=== PATIENT | female | born 1940 | race Caucasian/White ===

== ENCOUNTER 2016-07-03 17:27 | Emergency (ER) | payer MEDICARE, MEDICAID ==
[2016-07-03] MEDS ORDERED: Sodium Chloride 0.9% 10 ML Syringe FLUSH PRN (17:38)
[2016-07-03 17:42] VITALS: BP 127/89
--- NOTE | 2016-07-03 18:29 | CT ---
Head CT Technique: Multiple axial sections through the brain were obtained. Intravenous contrast was not utilized. Comparison: Previous head CT study of 08/06/11. Findings: Ventricles along with basal cisterns and sulci over convexities are moderately prominent. Atrophy has increased from prior exam. Diminished density is noted within portions of the periventricular and subcortical white matter compatible with small vessel ischemic demyelination change. 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 No evidence of intracranial hemorrhage. No midline shift or mass effect is seen. Bone window settings were reviewed which shows the visualized sinuses to appear clear. No discrete calvarial abnormality is appreciated. Impression: 1. Atrophy which has increased in prominence from prior study. Other senescent change also slightly more prominent. 2. No acute intracranial abnormality is appreciated. Diagnostic code #2
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
--- NOTE | 2016-07-04 11:56 | CR ---
Chest: Portable view of the chest was obtained. Comparison: Previous chest x-ray of 02/15/14. Heart size appears within normal limits for portable technique. Tortuous thoracic aorta is seen. Lungs are clear with no acute infiltrates. Bony structures are osteopenic. Mild scoliosis is present within the spine with scattered endplate osteophytes within the spine. Impression: 1. Incidental findings. Nothing acute is appreciated on portable chest x-ray. Diagnostic code #2
== END 2016-07-03 20:15 ==
LOC: SUPCPDRO 17:27 → JD.ED 17:27
DX: F91.1 Conduct disorder, childhood-onset type (principal); R60.0 Localized edema; I10 Essential (primary) hypertension; K21.9 Gastro-esophageal reflux disease without esophagitis; F03.90 Unspecified dementia, unspecified severity, without behavioral disturbance, psychotic disturbance, mood disturbance, and anxiety; Z79.899 Other long term (current) drug therapy; Z88.8 Allergy status to other drugs, medicaments and biological substances
CPT/HCPCS: 36415; 70450; 71010; 80053; 81001; 83880; 84484; 85025; 87086; 87088; 87186; 93005; 99285; J7050

== ENCOUNTER 2016-07-04 15:15 | Emergency (ER) | payer MEDICARE, MEDICAID ==
[2016-07-04] MEDS ORDERED: Sodium Chloride 0.9% 10 ML Syringe FLUSH PRN (15:40)
[2016-07-04] MEDS ORDERED: ceFAZolin 1 GM in Premix Bag 1 BAG IV ONE (15:50)
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
[2016-07-04] MEDS ORDERED: LORazepam 2 MG/ML MDV IVPUSH ONE (16:18)
[2016-07-04] MEDS ORDERED: Haloperidol Lactate 5 MG/ML SDV IVPUSH ONE (17:47)
[2016-07-04 19:26] VITALS: BP 120/76
== END 2016-07-04 19:00 ==
LOC: JD.ED 15:15
DX: G30.9 Alzheimer's disease, unspecified (principal); F02.81 Dementia in other diseases classified elsewhere, unspecified severity, with behavioral disturbance; N30.00 Acute cystitis without hematuria; I10 Essential (primary) hypertension; K21.9 Gastro-esophageal reflux disease without esophagitis; Z88.8 Allergy status to other drugs, medicaments and biological substances
CPT/HCPCS: 96365; 96375; 99285; J0690; J1630; J2060; J7050; 99284

== ENCOUNTER 2016-07-19 17:50 | Emergency (ER) | payer MEDICARE, MEDICAID ==
[2016-07-19 17:57] VITALS: BP 125/64
--- NOTE | 2016-07-19 19:49 | EDM.PDOC ---
ED HPI GENERAL MEDICAL PROBLEM - General Chief Complaint: Behavioral/Psych Stated Complaint: Agitation Time Seen by Provider: 07/19/16 18:45 Source of Information: Reports: Patient, RN Notes Reviewed History Limitations: Reports: No Limitations - History of Present Illness INITIAL COMMENTS - FREE TEXT/NARRATIVE: 76 year old female is sent to the emergency department today for evaluation of agitated and aggressive behavior at the [facility]. Her aggressive behavior has been escalating to the point that the [facility] is concerned about the safety of the patient, staff, and other residents. Its reported that law enforcement was even called to respond to the [facility] due to the severity of her aggression. This aggressive behavior has been escalating for approximately 2 months. The behaviors are described as intermittent. Broderick from [facility] called and spoke to our CNO Jessica Clayton regarding this patient. Due to safety concerns they are refusing to let the patient come back to [facility]. No reported falls or injuries at the [facility]. The patient was in the ED on 07/04/16 for the same concerns and was subsequently sent to the psych unit at [facility] in [place]. She was just released from [facility] two days ago. Dr. Verdugo, psychiatrist from [place] who is involved in this patient's case through the [facility], called from [facility] and spoke to ED Physician Dr. Calix regarding this patient. Dr. Verdugo told Dr. Landeros that Kaela is no longer safe to be at [facility] due to the severity of her behaviors. A close friend of the family is present at the bedside as the patient's two daughters live out of state. The friend states that the patient's behaviors are much worse since she came back from [facility]. She reports that the patient was in the Alzheimers unit at one time but was moved out of the alzheimers unit due to "conflict with another resident." According to the friend, the patient's MPOA is her daughter Sharyn Fuchs who lives in [place]. The patient is otherwise in good health. She is independent with her cares and ambulates without assistance. According to the friend, the patient was diagnosed with a UTI prior to transfer to [place] and was treated with antibiotics. - Related Data Allergies Allergy/AdvReac Type Severity Reaction Status Date / Time memantine Allergy Cannot Verified 07/19/16 17:57 Remember Home Meds: Home Meds Acetaminophen [Tylenol] 650 mg PO TID 07/04/16 [History] Docusate Sodium/Sennosides [Senna Plus] 2 tab PO DAILY PRN 07/04/16 [History] Bisacodyl [Dulcolax] 10 mg RECTAL DAILY PRN 07/19/16 [History] Divalproex Sodium [Depakote Sprinkle] 250 mg PO BEDTIME 07/19/16 [History] Divalproex Sodium [Depakote Sprinkle] 250 mg PO DAILY 07/19/16 [History] Docusate Sodium/Sennosides [Senna Plus] 2 tab PO DAILY 07/19/16 [History] Polyvinyl Alcohol/Povidone/Pf [Refresh Classic Eye Drops] 1 drop EYEBOTH DAILY PRN 07/19/16 [History] QUEtiapine [SEROquel] 12.5 mg PO TID 07/19/16 [History] QUEtiapine [SEROquel] 25 mg PO TID 07/19/16 [History] Past Medical History Cardiovascular History: Reports: Angina, Hypertension Gastrointestinal History: Reports: GERD Musculoskeletal History: Reports: Back Pain, Chronic Psychiatric History: Reports: Dementia, Other (See Below) Other Psychiatric History: cognnitive impairment Social & Family History - Tobacco Use Smoking Status *Q: Unknown Ever Smoked Years of Tobacco use: 0 Second Hand Smoke Exposure: No - Caffeine Use Caffeine Use: Reports: Coffee - Alcohol Use Days Per Week of Alcohol Use: 0 - Recreational Drug Use Recreational Drug Use: No - Living Situation & Occupation Living situation: Reports: Single, Alone ED ROS GENERAL - Review of Systems Review Of Systems: Unable To Obtain ED EXAM, BEHAVIORAL HEALTH - Physical Exam Exam: See Below Exam Limited By: Altered Mental Status General Appearance: Alert, WD/WN, No Apparent Distress, Other (calm, cooperative ) Eye Exam: Bilateral Eye: EOMI, PERRL Respiratory/Chest: No Respiratory Distress, Lungs Clear, Normal Breath Sounds Cardiovascular: Regular Rate, Rhythm GI/Abdominal: Normal Bowel Sounds, Soft, Non-Tender Neurological: Alert, Disoriented to Person, Disoriented to Place, Disoriented to Time, Inattentive, Other (the patient has speech that is at times appropriate and at other times she mumbles garbled speech. Friend at the bedside says this is very common and normal for her) Psychiatric: Alert, Flat Affect, Other (cooeperative). No: Threatening Behavior Skin Exam: Warm, Dry, Intact COURSE, BEHAVIORAL HEALTH COMP - Course Vital Signs: Last Vital Signs Temp 98.7 F 07/19/16 17:55 Pulse 88 07/19/16 22:52 Resp 18 07/19/16 22:52 BP 125/64 07/19/16 17:55 Pulse Ox 95 07/19/16 22:52 Orders, Labs, Meds: Laboratory Tests 07/19/16 07/19/16 07/19/16 Range/Units 19:20 19:20 20:57 WBC 6.71 (3.98-10.04) K/mm3 RBC 3.97 L (3.98-5.22) M/mm3 Hgb 11.8 (11.2-15.7) gm/L Hct 35.9 (34.1-44.9) % MCV 90.4 (79.4-94.8) fl MCH 29.7 (25.6-32.2) pg MCHC 32.9 (32.2-35.5) g/dl RDW Std Deviation 40.3 (36.4-46.3) fL Plt Count 188 (182-369) K/mm3 MPV 12.0 (9.4-12.3) fl Neut % (Auto) 56.0 (34.0-71.1) % Lymph % (Auto) 27.7 (19.3-51.7) % Harrison % (Auto) 13.6 H (4.7-12.5) % Eos % (Auto) 2.4 (0.7-5.8) Baso % (Auto) 0.3 (0.1-1.2) % Neut # (Auto) 3.76 (1.56-6.13) K/mm3 Lymph # (Auto) 1.86 (1.18-3.74) K/mm3 Harrison # (Auto) 0.91 H (0.24-0.36) K/mm3 Eos # (Auto) 0.16 (0.04-0.36) K/mm3 Baso # (Auto) 0.02 (0.01-0.08) K/mm3 Sodium 144 (136-145) mEq/L Potassium 4.5 (3.5-5.1) mEq/L Chloride 109 H (98-107) mEq/L Carbon Dioxide 29 (21-32) mEq/L Anion Gap 10.5 (5-15) BUN 13 (7-18) mg/dL Creatinine 0.8 (0.55-1.02) mg/dL Est Cr Clr Drug Dosing 52.15 mL/min Estimated GFR (MDRD) > 60 (>60) mL/min BUN/Creatinine Ratio 16.3 (14-18) Glucose 120 H (83-115) mg/dL Calcium 8.7 (8.5-10.1) mg/dL Total Bilirubin 0.7 (0.2-1.0) mg/dL AST 20 (15-37) U/L ALT 27 (14-59) U/L Alkaline Phosphatase 92 (46-116) U/L Total Protein 6.7 (6.4-8.2) g/dl Albumin 3.4 (3.4-5.0) g/dl Globulin 3.3 gm/dL Albumin/Globulin Ratio 1.0 (1-2) TSH 3rd Generation 1.110 (0.358-3.74) uIU/mL Urine Color Yellow (Yellow) Urine Appearance Clear (Clear) Urine pH 7.0 (5.0-8.0) Ur Specific [place] 1.015 (1.005-1.030) Urine Protein Trace H (Negative) Urine Glucose (UA) Negative (Negative) Urine Ketones Negative (Negative) Urine Occult Blood Negative (Negative) Urine Nitrite Negative (Negative) Urine Bilirubin Negative (Negative) Urine Urobilinogen 2.0 H (0.2-1.0) Ur Leukocyte Esterase Negative (Negative) Urine RBC Not seen (0-5) /hpf Urine WBC 0-5 (0-5) /hpf Ur Epithelial Cells Not Reportable Ur Squamous Epith Cells 0-5 (0-5) /hpf Urine Bacteria Not seen (FEW) /hpf Urine Mucus Moderate H (FEW) /hpf Medications Discontinued Medications Generic Name Dose Route Start Last Admin Trade Name Freq PRN Reason Stop Dose Admin Lorazepam 0.5 mg 07/19/16 20:11 07/19/16 20:20 Ativan IM 07/19/16 20:12 0.5 mg ONETIME ONE Administration Lorazepam 0.5 mg 07/19/16 20:54 07/19/16 21:00 Ativan IM 07/19/16 20:55 0.5 mg ONETIME ONE Administration Re-Assessment/Re-Exam: On 07/03/16 the patient had a head CT, chest x-ray, and EKG all of which were negative for acute findings to explain her altered mental status. There is no indication today for a repeat head CT as this has been an ongoing problem for over 2 months. 2130 CBC and CMP are normal. Cath UA is negative for infection. TSH is normal. Patient required IM Ativan in order to obtain cath UA. She has been calm and cooperative except during the cath which is to be expected in an dementia patient. Staff has been able to redirect her without any problems. I spoke to Dr. Davila at [facility] regarding this patient. He is very familiar with her. He said she had no behaviors during her stay this past weekend. He said she was very calm and slept quite a bit. He recommends increasing her Seroquel to 50mg PO TID. He does not feel she needs to be admitted to the psych unit again and recommends that she be discharged back to the [facility]. He was made aware that the [facility] is refusing to take her back. I spoke to ED Physician Dr. Tate and also Hospitalist Dr. Rose. Dr. Rose initially accepted the patient for obs admission since the patient does meet obs criteria based on her altered mental status. I then received a phone call from Liam, the director of case management and quality improvement. Liam said that we cannot admit this patient since we do not have psychiatric services. He recommends that we hold this patient in the ED until we find placement. Throughout the patient's stay, I have been in touch with Amber from [facility] [employer] several times. Liam has also spoken to Amber himself. There is a possibility of admission to the [facility] tomorrow morning. Amber spoke to Dr. Beltran at the [facility]. Amber says that admission sounds promising but that it would need to be coordinated in the morning. I agree that sending an elderly patient on a [address] to [place] at night is not appropriate. 0 I spoke to our CNO again regarding this patient. The patient has had no behaviors here and will be discharge back to the [facility]. I had a long talk with the [facility] [employer] administrator Broderick who was updated on Dr. Davila's recommendations. I recommended that they start her increased Seroquel dose in the morning since she had Ativan in the ED tonight. I again spoke to Amber from [facility]. She said they would be able to screen the patient for the [facility] tomorrow at the [facility]. This shouldn't be a problem and she will update the staff in the morning. Departure - Departure Time of Disposition: 22:12 Disposition: DC/Tfer to [facility] 61 Condition: good Clinical Impression: Alzheimer's dementia Qualifiers: Alzheimer's disease onset: unspecified onset Dementia behavioral disturbance: with behavioral disturbance Qualified Code(s): G30.8 - Other Alzheimer's disease - Discharge Information Instructions: Alzheimer Disease Referrals: Haris Alex MD [Primary Care Provider] - Forms: ED Department Discharge Additional Instructions: We spoke to Psychiatrist Dr. Davila who recommends increasing the patient's Seroquel to 50mg 3 times a day Call [facility] tomorrow and have her seen by Dr. Alex in the clinic tomorrow. Return to ER as needed
[2016-07-19] MEDS ORDERED: LORazepam 2 MG/ML MDV IM ONE ×2 (20:11→20:54)
== END 2016-07-19 22:45 ==
LOC: JD.ED 17:50
DX: G30.8 Other Alzheimer's disease (principal); K21.9 Gastro-esophageal reflux disease without esophagitis; G89.29 Other chronic pain; M54.9 Dorsalgia, unspecified; Z79.899 Other long term (current) drug therapy; Z88.8 Allergy status to other drugs, medicaments and biological substances
CPT/HCPCS: 36415; 80053; 81001; 84443; 85025; 96372; 99285; J2060; P9612; 99284

== ENCOUNTER 2017-03-23 19:44 | Inpatient (IN) | payer MEDICARE, MEDICAID ==
[2017-03-23] MEDS ORDERED: Sodium Chloride 0.9% 1,000 ML IV ONE (20:01)
[2017-03-23] MEDS ORDERED: Sodium Chloride 0.9% 10 ML Syringe FLUSH PRN (20:01)
--- NOTE | 2017-03-23 20:09 | EDM.PDOC ---
ED HPI GENERAL MEDICAL PROBLEM - General Chief Complaint: General Stated Complaint: KILLDEER AMB Time Seen by Provider: 03/23/17 20:03 Source of Information: Reports: [facility] Records History Limitations: Reports: Physical Impairment (dementia) - History of Present Illness INITIAL COMMENTS - FREE TEXT/NARRATIVE: 76 year old female presents via [facility] for evaluation and treatment of lethargy and a decreased appetite. Patient is demented and is unable to provide any history. Reportedly per the [facility] she's been tachycardic in the 110s to 130s today. Have also appreciated decreased appetite and lethargy. They do not report any fevers, vomiting, cough or diarrhea. Patient is a DNR, DNI. Patient is a resident of [facility]. - Related Data Allergies Allergy/AdvReac Type Severity Reaction Status Date / Time memantine Allergy Cannot Verified 07/19/16 17:57 Remember Home Meds: Home Meds Acetaminophen [Tylenol] 650 mg PO Q6H PRN 07/04/16 [History] Docusate Sodium/Sennosides [Senna Plus] 2 tab PO BID PRN 07/04/16 [History] Divalproex Sodium [Depakote Sprinkle] 500 mg PO BID 07/19/16 [History] QUEtiapine [SEROquel] 50 mg PO BID 07/19/16 [History] Aspirin [Halfprin] 81 mg PO DAILY 03/23/17 [History] Magnesium 250 mg PO BID 03/23/17 [History] Melatonin 6 mg PO BEDTIME 03/23/17 [History] Mirtazapine 7.5 mg PO BEDTIME 03/23/17 [History] traMADol [Ultram] 50 mg PO BID 03/23/17 [History] Past Medical History Cardiovascular History: Reports: Angina, Hypertension Gastrointestinal History: Reports: GERD Musculoskeletal History: Reports: Back Pain, Chronic Psychiatric History: Reports: Dementia, Other (See Below) Other Psychiatric History: cognnitive impairment Social & Family History - Tobacco Use Smoking Status *Q: Unknown Ever Smoked Years of Tobacco use: 0 Second Hand Smoke Exposure: No - Caffeine Use Caffeine Use: Reports: Coffee - Alcohol Use Days Per Week of Alcohol Use: 0 - Recreational Drug Use Recreational Drug Use: No - Living Situation & Occupation Living situation: Reports: Single, Alone ED ROS GENERAL - Review of Systems Review Of Systems: Unable To Obtain Constitutional: Reports: Fatigue, Decreased Appetite Cardiovascular: Reports: Other (tachycardia) ED EXAM, GENERAL - Physical Exam Exam: See Below Exam Limited By: Physical Impairment (dementia) General Appearance: Alert, No Apparent Distress Eye Exam: Bilateral Eye: PERRL Ears: Normal External Exam Nose: Normal Inspection Throat/Mouth: Other (dry mucus membranesand tongue) Respiratory/Chest: No Respiratory Distress, Lungs Clear, Normal Breath Sounds Cardiovascular: Tachycardia, Systolic Murmur (grade 2 ) GI/Abdominal: Normal Bowel Sounds, Soft, Non-Tender Rectal (Female) Exam: Normal Exam, Heme + Stool Extremities: Normal Inspection Neurological: Alert Skin Exam: Dry, Increased Warmth EKG INTERPRETATION EKG Date: 03/23/17 Time: 20:15 Rhythm: Other (sinus tachycardia) Rate (Beats/Min): 135 Aurora: LAD-Left Aurora Deviation P-Wave: Present QRS: Normal ST-T: Normal QT: Normal EKG Interpretation Comments: Narrow complex tachycardia at 135 bpm. P waves are poorly discerned - consider ectopic atrial rhythm . Q waves in V3. Near Q waves in V6. Abnormal R wave progression. Near Q waves II, III and AVF. LAD (-72 degrees) LVH pattern. Reviewed by myself and Dr. Blackburn. Course - Vital Signs Last Recorded V/S: Last Vital Signs Temp 37.9 C 03/23/17 20:02 Pulse 117 H 03/23/17 20:02 Resp 18 03/23/17 20:02 BP 124/78 03/23/17 20:02 Pulse Ox 97 03/23/17 20:02 - Orders/Labs/Meds Orders: Active Orders 24 hr Category Date Time Status Cardiac Monitoring [RC] . DIRECTED Care 03/23/17 20:01 Active EKG Documentation Completion [RC] ASDIRECTED Care 03/23/17 20:01 Active Peripheral IV Care [RC] . DIRECTED Care 03/23/17 20:01 Active Chest 1V Frontal [CR] Stat Exams 03/23/17 20:01 Taken CULTURE BLOOD [BC] Stat Lab 03/23/17 20:25 Received CULTURE BLOOD [BC] Stat Lab 03/23/17 20:25 Received CULTURE URINE [RM] Stat Lab 03/23/17 19:55 Received Dextrose 5% in Water 500 ml Med 03/23/17 21:45 Active IV ASDIRECTED Sodium Chloride 0.9% [Saline Flush] Med 03/23/17 20:01 Active 10 ml FLUSH ASDIRECTED PRN Blood Culture x2 Reflex Set [OM.PC] Stat Oth 03/23/17 20:01 Ordered Peripheral IV Insertion Adult [OM.PC] Routine Oth 03/23/17 19:59 Ordered EKG 12 Lead [EK] Stat Ther 03/23/17 20:01 Ordered Medication Orders Dextrose/Water (Dextrose 5% In Water) 500 mls @ 250 mls/hr IV ASDIRECTED BRUNA Last Admin: 03/23/17 22:17 Dose: 250 mls/hr Sodium Chloride (Saline Flush) 10 ml FLUSH ASDIRECTED PRN PRN Reason: Keep Vein Open Last Admin: 03/23/17 20:36 Dose: 10 ml Labs: Laboratory Tests 03/23/17 03/23/17 03/23/17 Range/Units 19:55 20:25 20:25 WBC 13.44 H (3.98-10.04) K/mm3 RBC 4.83 (3.98-5.22) M/mm3 Hgb 14.1 (11.2-15.7) gm/L Hct 46.7 H (34.1-44.9) % MCV 96.7 H (79.4-94.8) fl MCH 29.2 (25.6-32.2) pg MCHC 30.2 L (32.2-35.5) g/dl RDW Std Deviation 51.6 H (36.4-46.3) fL Plt Count 151 L (182-369) K/mm3 Neutrophils % (Manual) 80 H (40-60) % Band Neutrophils % 2 (0-10) % Lymphocytes % (Manual) 13 L (20-40) % Atypical Lymphs % 0 % Monocytes % (Manual) 5 (2-10) % Eosinophils % (Manual) 0 L (0.7-5.8) % Basophils % (Manual) 0 L (0.1-1.2) Platelet Estimate Adequate Plt Morphology Comment See note RBC Morph Comment Normal Sodium 159 H (136-145) mEq/L Potassium 3.8 (3.5-5.1) mEq/L Chloride 118 H (98-107) mEq/L Carbon Dioxide 30 (21-32) mEq/L Anion Gap 14.8 (5-15) BUN 29 H (7-18) mg/dL Creatinine 1.1 H (0.55-1.02) mg/dL Est Cr Clr Drug Dosing TNP Estimated GFR (MDRD) 48 (>60) mL/min BUN/Creatinine Ratio 26.4 H (14-18) Glucose 115 (83-115) mg/dL Lactic Acid (0.4-2.0) mmol/L Calcium 9.1 (8.5-10.1) mg/dL Magnesium (1.8-2.4) mg/dl Total Bilirubin 0.6 (0.2-1.0) mg/dL AST 26 (15-37) U/L ALT 31 (14-59) U/L Alkaline Phosphatase 78 (46-116) U/L Troponin I < 0.017 (0.00-0.056) ng/mL C-Reactive Protein 3.9 H* (<1.0) mg/dL Total Protein 7.4 (6.4-8.2) g/dl Albumin 3.1 L (3.4-5.0) g/dl Globulin 4.3 gm/dL Albumin/Globulin Ratio 0.7 L (1-2) Urine Color Yellow (Yellow) Urine Appearance Cloudy H (Clear) Urine pH 6.0 (5.0-8.0) Ur Specific [place] 1.025 (1.005-1.030) Urine Protein 1+ H (Negative) Urine Glucose (UA) Negative (Negative) Urine Ketones Trace H (Negative) Urine Occult Blood Trace-intact H (Negative) Urine Nitrite Positive H (Negative) Urine Bilirubin Negative (Negative) Urine Urobilinogen 0.2 (0.2-1.0) Ur Leukocyte Esterase 2+ H (Negative) Urine RBC 5-10 H (0-5) /hpf Urine WBC >100 H (0-5) /hpf Urine WBC Clumps Few (NOT SEEN) /hpf Ur Epithelial Cells 0-5 (0-5) /hpf Amorphous Sediment Few H (NOT SEEN) /hpf Urine Bacteria Many H (FEW) /hpf Urine Mucus Few (FEW) /hpf 03/23/17 03/23/17 Range/Units 20:25 20:25 WBC (3.98-10.04) K/mm3 RBC (3.98-5.22) M/mm3 Hgb (11.2-15.7) gm/L Hct (34.1-44.9) % MCV (79.4-94.8) fl MCH (25.6-32.2) pg MCHC (32.2-35.5) g/dl RDW Std Deviation (36.4-46.3) fL Plt Count (182-369) K/mm3 Neutrophils % (Manual) (40-60) % Band Neutrophils % (0-10) % Lymphocytes % (Manual) (20-40) % Atypical Lymphs % % Monocytes % (Manual) (2-10) % Eosinophils % (Manual) (0.7-5.8) % Basophils % (Manual) (0.1-1.2) Platelet Estimate Plt Morphology Comment RBC Morph Comment Sodium (136-145) mEq/L Potassium (3.5-5.1) mEq/L Chloride (98-107) mEq/L Carbon Dioxide (21-32) mEq/L Anion Gap (5-15) BUN (7-18) mg/dL Creatinine (0.55-1.02) mg/dL Est Cr Clr Drug Dosing Estimated GFR (MDRD) (>60) mL/min BUN/Creatinine Ratio (14-18) Glucose (83-115) mg/dL Lactic Acid 2.7 H (0.4-2.0) mmol/L Calcium (8.5-10.1) mg/dL Magnesium 2.5 H (1.8-2.4) mg/dl Total Bilirubin (0.2-1.0) mg/dL AST (15-37) U/L ALT (14-59) U/L Alkaline Phosphatase (46-116) U/L Troponin I (0.00-0.056) ng/mL C-Reactive Protein (<1.0) mg/dL Total Protein (6.4-8.2) g/dl Albumin (3.4-5.0) g/dl Globulin gm/dL Albumin/Globulin Ratio (1-2) Urine Color (Yellow) Urine Appearance (Clear) Urine pH (5.0-8.0) Ur Specific [place] (1.005-1.030) Urine Protein (Negative) Urine Glucose (UA) (Negative) Urine Ketones (Negative) Urine Occult Blood (Negative) Urine Nitrite (Negative) Urine Bilirubin (Negative) Urine Urobilinogen (0.2-1.0) Ur Leukocyte Esterase (Negative) Urine RBC (0-5) /hpf Urine WBC (0-5) /hpf Urine WBC Clumps (NOT SEEN) /hpf Ur Epithelial Cells (0-5) /hpf Amorphous Sediment (NOT SEEN) /hpf Urine Bacteria (FEW) /hpf Urine Mucus (FEW) /hpf Meds: Medications Generic Name Dose Route Start Last Admin Trade Name Freq PRN Reason Stop Dose Admin Dextrose/Water 500 mls @ 250 mls/hr 03/23/17 21:45 03/23/17 22:17 Dextrose 5% In Water IV 250 mls/hr ASDIRECTED BRUNA Administration Sodium Chloride 10 ml 03/23/17 20:01 03/23/17 20:36 Saline Flush FLUSH 10 ml ASDIRECTED PRN Administration Keep Vein Open Discontinued Medications Generic Name Dose Route Start Last Admin Trade Name Freq PRN Reason Stop Dose Admin Sodium Chloride 1,000 mls @ 999 mls/hr 03/23/17 20:01 03/23/17 20:35 Normal Saline IV 03/23/17 21:01 999 mls/hr ONETIME ONE Administration Ceftriaxone Sodium 1 gm/ 100 mls @ 200 mls/hr 03/23/17 20:18 03/23/17 20:35 Sodium Chloride IV 03/23/17 20:47 200 mls/hr ONETIME ONE Administration Ceftriaxone Sodium 1 gm/ 100 mls @ 200 mls/hr 03/23/17 21:38 03/23/17 21:46 Sodium Chloride IV 03/23/17 22:07 200 mls/hr ONETIME ONE Administration Dextrose/Water Confirm 03/23/17 22:20 Dextrose 5% In Water Administered 03/23/17 22:21 Dose 500 mls @ as directed .ROUTE .[facility] - Radiology Interpretation Free Text/Narrative:: chest xray reviewed by myself and Dr. Blackburn. No acute intrathoracic process. Head CT Technique: Multiple axial sections through the brain were obtained. Intravenous contrast was not utilized. Comparison: Previous head CT study of 07/03/16. Findings: Ventricles along with basal cisterns and sulci are convexities are moderately prominent. Findings are similar to prior study. Slight diminished density is noted within the periventricular and subcortical white matter compatible with small vessel ischemic demyelination change. 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 No other abnormal parenchymal densities are seen. No evidence of intracranial hemorrhage. No midline shift or mass effect is seen. Bone window settings were reviewed which shows the visualized sinuses to appear clear. No acute calvarial abnormality is seen. Impression: 1. Senescent change as noted above which appears fairly stable from previous head CT exam. 2. Nothing acute is appreciated on noncontrast head CT study. - Re-Assessments/Exams Free Text/Narrative Re-Assessment/Exam: 03/23/17 21:56 Influenza returned negative. Discussed the case with Dr. Justin, hospitalist operations developer. Recommend putting the patient on free water either dextrose or LR. She also recommended giving a second gram of IV Rocephin. Will plan to admit med surg with tele for urinary tract infection and hypernatremia. I called the patient's daughter, Sharyn, at [phone] for an update. I did impress upon her the severity of mom's illness. Informed her of her urinary tract infection with possibility of sepsis as well as the hypernatremia. I informed her that Dr. Justin will likely want to discuss comfort cares with her. Sharyn does resides in [place]. Reports that she has a aircraft layout worker here in [place] (she is listed on her contacts). Sharyn states we can discuss with patient's plan of care with [place]. Departure - Departure Time of Disposition: 21:45 Disposition: Admitted As Inpatient 64 Condition: Poor Clinical Impression: Hypernatremia UTI (urinary tract infection) Qualifiers: Urinary tract infection type: acute cystitis Hematuria presence: without hematuria Qualified Code(s): N30.00 - Acute cystitis without hematuria - Discharge Information Referrals: PCP,Unknown [Ordering Only Provider] - Forms: ED Department Discharge Additional Instructions: patient is to be admitted to med-surg with tele under Dr. Justin. - My Orders Last 24 Hours: My Active Orders 03/23/17 19:55 CULTURE URINE [RM] Stat 03/23/17 19:59 Peripheral IV Insertion Adult [OM.PC] Routine 03/23/17 20:01 Cardiac Monitoring [RC] . DIRECTED EKG Documentation Completion [RC] ASDIRECTED Peripheral IV Care [RC] . DIRECTED Chest 1V Frontal [CR] Stat Sodium Chloride 0.9% [Saline Flush] 10 ml FLUSH ASDIRECTED PRN Blood Culture x2 Reflex Set [OM.PC] Stat EKG 12 Lead [EK] Stat 03/23/17 20:25 CULTURE BLOOD [BC] Stat CULTURE BLOOD [BC] Stat 03/23/17 21:45 Dextrose 5% in Water 500 ml IV ASDIRECTED - Assessment/Plan Last 24 Hours: My Active Orders 03/23/17 19:55 CULTURE URINE [RM] Stat 03/23/17 19:59 Peripheral IV Insertion Adult [OM.PC] Routine 03/23/17 20:01 Cardiac Monitoring [RC] . DIRECTED EKG Documentation Completion [RC] ASDIRECTED Peripheral IV Care [RC] . DIRECTED Chest 1V Frontal [CR] Stat Sodium Chloride 0.9% [Saline Flush] 10 ml FLUSH ASDIRECTED PRN Blood Culture x2 Reflex Set [OM.PC] Stat EKG 12 Lead [EK] Stat 03/23/17 20:25 CULTURE BLOOD [BC] Stat CULTURE BLOOD [BC] Stat 03/23/17 21:45 Dextrose 5% in Water 500 ml IV ASDIRECTED
[2017-03-23] MEDS ORDERED: cefTRIAXone 1 GM in Sodium Chloride 0.9% 100 ML IV ONE ×2 (20:18→21:38)
--- NOTE | 2017-03-23 21:04 | CT ---
Head CT Technique: Multiple axial sections through the brain were obtained. Intravenous contrast was not utilized. Comparison: Previous head CT study of 07/03/16. Findings: Ventricles along with basal cisterns and sulci are convexities are moderately prominent. Findings are similar to prior study. Slight diminished density is noted within the periventricular and subcortical white matter compatible with small vessel ischemic demyelination change. 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 No other abnormal parenchymal densities are seen. No evidence of intracranial hemorrhage. No midline shift or mass effect is seen. Bone window settings were reviewed which shows the visualized sinuses to appear clear. No acute calvarial abnormality is seen. Impression: 1. Senescent change as noted above which appears fairly stable from previous head CT exam. 2. Nothing acute is appreciated on noncontrast head CT study. Diagnostic code #2
[2017-03-23] MEDS ORDERED: Dextrose 5% in Water 500 ML IV SCH (21:45)
[2017-03-23] MEDS ORDERED: Dextrose 5% in Water 500 ML ONE (22:20)
[2017-03-24] MEDS ORDERED: Temazepam 7.5 MG Cap PO PRN (00:39)
[2017-03-24] MEDS ORDERED: Acetaminophen 325 MG Tab PO PRN ×2 (00:40→09:45)
[2017-03-24] MEDS: Lactated Ringers 1,000 ML IV SCH ×2 (00:55→06:49)
[2017-03-24] MEDS ORDERED: Enoxaparin 30 MG/0.3 ML Syringe SUBCUT SCH (09:00)
[2017-03-24] MEDS: Enoxaparin 40 MG/0.4 ML Syringe SUBCUT SCH (09:13)
--- NOTE | 2017-03-24 09:33 | PCM.HP ---
H&P History of Present Illness - General Date of Service: 03/24/17 Admit Problem/Dx: Admission Diagnosis/Problem Admission Diagnosis/Problem Hypernatremia Source of Information: Provider History Limitations: Reports: Other (ED provider and hospitalist service have limited information regarding the functional status change of the patient.) - History of Present Illness Initial Comments - Free Text/Narative: 76 year old female with lethargy presents from [facility] [place]. The change in her status is unknown. Nursing reported tachycardia with lethargy and a change in appetite. The patient has baseline dementia. They denied N/V, fever/chills, sick contact, chest pain, SOB, a change in GI/ habits. The patient will be admitted to [facility] telemetry with AMS. Onset of Symptoms: Reports: Unknown/Unsure Duration of Symptoms: Reports: Hour(s): Location: Reports: Generalized Severity: Moderate Improves with: Reports: Medication Worsens with: Reports: None - Related Data Allergies/Adverse Reactions: Allergies Allergy/AdvReac Type Severity Reaction Status Date / Time memantine Allergy Cannot Verified 03/24/17 02:59 Remember Home Medications: Home Meds Acetaminophen [Tylenol] 650 mg PO Q6H PRN 07/04/16 [History] Docusate Sodium/Sennosides [Senna Plus] 2 tab PO BID PRN 07/04/16 [History] Divalproex Sodium [Depakote Sprinkle] 500 mg PO BID 07/19/16 [History] QUEtiapine [SEROquel] 50 mg PO BID 07/19/16 [History] Aspirin [Halfprin] 81 mg PO DAILY 03/23/17 [History] Magnesium 250 mg PO BID 03/23/17 [History] Melatonin 6 mg PO BEDTIME 03/23/17 [History] Mirtazapine 7.5 mg PO BEDTIME 03/23/17 [History] traMADol [Ultram] 50 mg PO BID 03/23/17 [History] Past Medical History HEENT History: Reports: None Cardiovascular History: Reports: Angina, Hypertension Other Cardiovascular History: ischemic heart disease Gastrointestinal History: Reports: GERD [employer]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: Musculoskeletal History: Reports: Back Pain, Chronic Neurological History: Reports: Alzheimers Disease, Parkinson's Psychiatric History: Reports: Dementia, Other (See Below) Other Psychiatric History: pt has hx of bipolar disorder, vascular dementia, mood disorder, cognitive disorder Dermatologic History: Reports: Other (See Below) Other Dermatologic History: seborrheic dermatitis - Infectious Disease History Infectious Disease History: Reports: Other (See Below) Other Infectious Disease History: unknown - Past Surgical History HEENT Surgical History: Reports: None Cardiovascular Surgical History: Reports: None GI Surgical History: Reports: None Neurological Surgical History: Reports: None Musculoskeletal Surgical History: Reports: None Dermatological Surgical History: Reports: None Social & Family History - Family History Family Medical History: Noncontributory - Tobacco Use Smoking Status *Q: Unknown Ever Smoked Years of Tobacco use: 0 Second Hand Smoke Exposure: No - Caffeine Use Caffeine Use: Reports: Other Other Caffeine Use: unknown - Alcohol Use Days Per Week of Alcohol Use: 0 - Recreational Drug Use Recreational Drug Use: No Other Recreational Drug Type: unknown-pt [facility]-assume no street drugs - Living Situation & Occupation Living situation: Reports: Single, Alone H&P Review of Systems - Review of Systems: Review Of Systems: Unable To Obtain Exam - Exam Exam: See Below - Vital Signs Vital Signs: Last Vital Signs Temp 37.4 C 03/24/17 00:27 Pulse 96 03/24/17 00:16 Resp 12 03/24/17 00:27 BP 118/86 03/24/17 00:16 Pulse Ox 100 03/24/17 00:16 Weight: 65.941 kg - Exam Quality Assessment: Supplemental Oxygen, DVT Prophylaxis General: Lethargic HEENT: Pupils Equal, Pupils Reactive, PERRLA Neck: Trachea Midline Lungs: Normal Respiratory Effort Cardiovascular: Regular Rate, Regular Rhythm GI/Abdominal Exam: Normal Bowel Sounds, Soft, Non-Tender, No Organomegaly, No Distention (Female) Exam: Deferred Rectal (Female) Exam: Deferred Back Exam: Normal Inspection Extremities: Normal Inspection, Non-Tender Skin: Warm Neurological: Cranial Nerves Intact Neuro Extensive - Motor, Sensory, Reflexes: CN II-XII Intact (grossly) Psychiatric: Other (lethargic) - Patient Data Lab Results Last 24 hrs: Laboratory Results - last 24 hr 03/24/17 03/24/17 03/24/17 Range/Units 00:15 06:12 06:12 WBC 10.78 H (3.98-10.04) K/mm3 RBC 4.22 (3.98-5.22) M/mm3 Hgb 12.4 (11.2-15.7) gm/L Hct 40.8 (34.1-44.9) % MCV 96.7 H (79.4-94.8) fl MCH 29.4 (25.6-32.2) pg MCHC 30.4 L (32.2-35.5) g/dl RDW Std Deviation 50.0 H (36.4-46.3) fL Plt Count 105 L (182-369) K/mm3 MPV 12.6 H (9.4-12.3) fl Neut % (Auto) 61.1 (34.0-71.1) % Lymph % (Auto) 29.1 (19.3-51.7) % [place] % (Auto) 7.3 (4.7-12.5) % Eos % (Auto) 2.0 (0.7-5.8) Baso % (Auto) 0.2 (0.1-1.2) % Neut # (Auto) 6.58 H (1.56-6.13) K/mm3 Lymph # (Auto) 3.14 (1.18-3.74) K/mm3 [place] # (Auto) 0.79 H (0.24-0.36) K/mm3 Eos # (Auto) 0.22 (0.04-0.36) K/mm3 Baso # (Auto) 0.02 (0.01-0.08) K/mm3 Sodium 158 H (136-145) mEq/L Potassium 3.7 (3.5-5.1) mEq/L Chloride 121 H (98-107) mEq/L Carbon Dioxide 28 (21-32) mEq/L Anion Gap 12.7 (5-15) BUN 22 H (7-18) mg/dL Creatinine 0.8 (0.55-1.02) mg/dL Est Cr Clr Drug Dosing 45.84 mL/min Estimated GFR (MDRD) > 60 (>60) mL/min BUN/Creatinine Ratio 27.5 H (14-18) Glucose 93 (83-115) mg/dL Lactic Acid (0.4-2.0) mmol/L Calcium 8.6 (8.5-10.1) mg/dL Magnesium 2.3 (1.8-2.4) mg/dl C-Reactive Protein 3.1 H* (<1.0) mg/dL Mycoplasma pneumon IgM Negative (NEGATIVE) MRSA (PCR) Negative 03/24/17 Range/Units 06:12 WBC (3.98-10.04) K/mm3 RBC (3.98-5.22) M/mm3 Hgb (11.2-15.7) gm/L Hct (34.1-44.9) % MCV (79.4-94.8) fl MCH (25.6-32.2) pg MCHC (32.2-35.5) g/dl RDW Std Deviation (36.4-46.3) fL Plt Count (182-369) K/mm3 MPV (9.4-12.3) fl Neut % (Auto) (34.0-71.1) % Lymph % (Auto) (19.3-51.7) % [place] % (Auto) (4.7-12.5) % Eos % (Auto) (0.7-5.8) Baso % (Auto) (0.1-1.2) % Neut # (Auto) (1.56-6.13) K/mm3 Lymph # (Auto) (1.18-3.74) K/mm3 [place] # (Auto) (0.24-0.36) K/mm3 Eos # (Auto) (0.04-0.36) K/mm3 Baso # (Auto) (0.01-0.08) K/mm3 Sodium (136-145) mEq/L Potassium (3.5-5.1) mEq/L Chloride (98-107) mEq/L Carbon Dioxide (21-32) mEq/L Anion Gap (5-15) BUN (7-18) mg/dL Creatinine (0.55-1.02) mg/dL Est Cr Clr Drug Dosing mL/min Estimated GFR (MDRD) (>60) mL/min BUN/Creatinine Ratio (14-18) Glucose (83-115) mg/dL Lactic Acid 2.1 H (0.4-2.0) mmol/L Calcium (8.5-10.1) mg/dL Magnesium (1.8-2.4) mg/dl C-Reactive Protein (<1.0) mg/dL Mycoplasma pneumon IgM (NEGATIVE) MRSA (PCR) Result Diagrams: 03/24/17 06:12 03/24/17 06:12 *Q Meaningful Use (ADM) - VTE *Q VTE Criteria *Q: - Stroke *Q Stroke Criteria *Q: - AMI *Q AMI Criteria *Q: - Problem List (1) Hypernatremia SNOMED Code(s): 73221141 ICD Code: E87.0 - HYPEROSMOLALITY AND HYPERNATREMIA Status: Acute Current Visit: Yes (2) UTI (urinary tract infection) SNOMED Code(s): 95032676 ICD Code: N39.0 - URINARY TRACT INFECTION, SITE NOT SPECIFIED Status: Acute Current Visit: Yes Qualifiers: Urinary tract infection type: acute cystitis Hematuria presence: without hematuria Qualified Code(s): N30.00 - Acute cystitis without hematuria (3) Alzheimer's dementia SNOMED Code(s): 60194489 ICD Code: G30.9 - ALZHEIMER'S DISEASE, UNSPECIFIED Status: Acute Current Visit: No Qualifiers: Alzheimer's disease onset: unspecified onset Dementia behavioral disturbance: with behavioral disturbance Qualified Code(s): G30.8 - Other Alzheimer's disease; F02.81 - Dementia in other diseases classified elsewhere with behavioral disturbance Problem List Initiated/Reviewed/Updated: Yes Orders Last 24hrs: Active Orders 24 hr Category Date Time Status Bedrest [RC] Care 03/24/17 00:42 Active Clear Liquid Diet [DIET] Diet 03/24/17 Breakfast Active STREP PNEUMONIAE ANTIGEN [MREF] Routine Lab 03/24/17 00:39 Received Acetaminophen [Tylenol] Med 03/24/17 00:40 Active 650 mg PO Q4H PRN Enoxaparin [Lovenox] Med 03/24/17 09:00 Active 40 mg SUBCUT DAILY Lactated Ringers [Ringers, Lactated] 1,000 ml Med 03/24/17 01:15 Active IV ASDIRECTED Temazepam [Restoril] Med 03/24/17 00:39 Active 7.5 mg PO BEDTIME PRN Code Status [Resuscitation Status] Routine Resus Stat 03/24/17 00:43 Ordered Medication Orders Acetaminophen (Tylenol) 650 mg PO Q4H PRN PRN Reason: Pain/Fever Enoxaparin Sodium (Lovenox) 40 mg SUBCUT DAILY [facility] Last Admin: 03/24/17 09:13 Dose: 40 mg Lactated Ringer's (Ringers, Lactated) 1,000 mls @ 200 mls/hr IV ASDIRECTED [facility] Last Admin: 03/24/17 06:49 Dose: 200 mls/hr Infusion: 03/24/17 05:55 Dose: 200 mls/hr Admin: 03/24/17 00:55 Dose: 200 mls/hr Sodium Chloride (Saline Flush) 10 ml FLUSH ASDIRECTED PRN PRN Reason: Keep Vein Open Last Admin: 03/23/17 20:36 Dose: 10 ml Temazepam (Restoril) 7.5 mg PO BEDTIME PRN PRN Reason: Sleep Assessment/Plan Comment:: Impression: AMS AUTI Hypernatremia Chronic CAD HTN Alzheimer dementia Plan: Infectious work up IV ATB for UTI Free water replacement Ischemic eval Home meds Daliy labs DVT/GI prophylaxis CM/PT/OT
[2017-03-24] MEDS: Dextrose 5% in Water 1,000 ML IV SCH ×2 (11:10→19:28)
--- NOTE | 2017-03-24 16:55 | CR ---
Chest: Portable view of the chest was obtained. Comparison: Prior chest x-ray of 07/03/16. Heart size is normal. Tortuous thoracic aorta is seen. Lungs are clear. Diffuse degenerative spurring is noted within the spine with slight scoliosis. Degenerative change is noted within both shoulders. Impression: 1. Incidental findings. Nothing acute is seen on portable chest x-ray. Diagnostic code #2
[2017-03-24] MEDS: Magnesium Oxide 400 MG Tab PO SCH (21:31)
[2017-03-24] MEDS: Divalproex Sodium Delayed-Release 125 MG Cap.Sprink PO SCH (21:31)
[2017-03-24] MEDS: QUEtiapine 25 MG Tab PO SCH (21:31)
[2017-03-24] MEDS: Mirtazapine 15 MG Tab PO SCH (21:32)
[2017-03-25] MEDS: Dextrose 5% in Water 1,000 ML IV SCH ×2 (04:13→15:16)
[2017-03-25] MEDS: Enoxaparin 40 MG/0.4 ML Syringe SUBCUT SCH (08:50)
[2017-03-25] MEDS: Aspirin 81 MG Tab.EC PO SCH (08:51)
[2017-03-25] MEDS: Magnesium Oxide 400 MG Tab PO SCH ×2 (08:53→22:21)
[2017-03-25] MEDS: QUEtiapine 25 MG Tab PO SCH ×2 (08:54→22:21)
[2017-03-25] MEDS: Divalproex Sodium Delayed-Release 125 MG Cap.Sprink PO SCH ×2 (08:56→22:19)
--- NOTE | 2017-03-25 09:44 | PCM.PN ---
- General Info Date of Service: 03/25/17 Admission Dx/Problem (Free Text): Admission Diagnosis/Problem Admission Diagnosis/Problem Hypernatremia Subjective Update: Follow up Functional Status: Reports: Pain Controlled, Tolerating Diet, Urinating. Denies : New Symptoms - Review of Systems General: Denies: Fever, Weakness, Fatigue, Malaise HEENT: Reports: No Symptoms Pulmonary: Denies: Shortness of Breath Cardiovascular: Denies: Chest Pain Gastrointestinal: Denies: Abdominal Pain, Nausea, Vomiting Genitourinary: Reports: No Symptoms Musculoskeletal: Reports: No Symptoms Skin: Denies: Cyanosis, Mottled, Pallor, Diaphoresis Neurological: Reports: Confusion, Difficulty Walking, Gait Disturbance. Denies : Weakness Psychiatric: Denies: Depression, Anxiety, Agitation, Hallucinations Systems Review Comment:: No significant overnight or acute issues. She is wake but not alert. She is able to engage and answer basic questions. She has no new complaints. Her sodium is slowly improving. She is afebrile without leukocytosis. - Patient Data Vitals - Most Recent: Last Vital Signs Temp 37.6 C 03/25/17 08:46 Pulse 84 03/25/17 08:46 Resp 16 03/25/17 08:46 BP 107/57 L 03/25/17 08:46 Pulse Ox 96 03/25/17 08:46 Weight - Most Recent: 66.451 kg I&O - Last 24 Hours: Intake & Output 03/24/17 03/25/17 03/25/17 22:59 06:59 14:59 Intake Total 1700 1381 Balance 1700 1381 Lab Results Last 24 Hours: Laboratory Results - last 24 hr 03/24/17 03/25/17 03/25/17 Range/Units 18:15 06:11 06:11 WBC 8.01 (3.98-10.04) K/mm3 RBC 4.38 (3.98-5.22) M/mm3 Hgb 12.9 (11.2-15.7) gm/L Hct 39.3 (34.1-44.9) % MCV 89.7 (79.4-94.8) fl MCH 29.5 (25.6-32.2) pg MCHC 32.8 (32.2-35.5) g/dl RDW Std Deviation 44.0 (36.4-46.3) fL Plt Count 70 L (182-369) K/mm3 Neut % (Auto) 58.0 (34.0-71.1) % Lymph % (Auto) 28.7 (19.3-51.7) % [place] % (Auto) 11.0 (4.7-12.5) % Eos % (Auto) 1.9 (0.7-5.8) Baso % (Auto) 0.2 (0.1-1.2) % Neut # (Auto) 4.64 (1.56-6.13) K/mm3 Lymph # (Auto) 2.30 (1.18-3.74) K/mm3 [place] # (Auto) 0.88 H (0.24-0.36) K/mm3 Eos # (Auto) 0.15 (0.04-0.36) K/mm3 Baso # (Auto) 0.02 (0.01-0.08) K/mm3 Manual Slide Review Abnormal smear Sodium 147 H 146 H (136-145) mEq/L Potassium 3.5 3.4 L (3.5-5.1) mEq/L Chloride 112 H 111 H (98-107) mEq/L Carbon Dioxide 25 24 (21-32) mEq/L Anion Gap 13.5 14.4 (5-15) BUN 14 9 (7-18) mg/dL Creatinine 0.8 0.7 (0.55-1.02) mg/dL Est Cr Clr Drug Dosing 45.84 52.39 mL/min Estimated GFR (MDRD) > 60 > 60 (>60) mL/min BUN/Creatinine Ratio 17.5 12.9 L (14-18) Glucose 154 H 95 (83-115) mg/dL Lactic Acid (0.4-2.0) mmol/L Calcium 8.1 L 8.3 L (8.5-10.1) mg/dL Magnesium 2.0 (1.8-2.4) mg/dl C-Reactive Protein 1.7 H* (<1.0) mg/dL 03/25/17 Range/Units 06:11 WBC (3.98-10.04) K/mm3 RBC (3.98-5.22) M/mm3 Hgb (11.2-15.7) gm/L Hct (34.1-44.9) % MCV (79.4-94.8) fl MCH (25.6-32.2) pg MCHC (32.2-35.5) g/dl RDW Std Deviation (36.4-46.3) fL Plt Count (182-369) K/mm3 Neut % (Auto) (34.0-71.1) % Lymph % (Auto) (19.3-51.7) % [place] % (Auto) (4.7-12.5) % Eos % (Auto) (0.7-5.8) Baso % (Auto) (0.1-1.2) % Neut # (Auto) (1.56-6.13) K/mm3 Lymph # (Auto) (1.18-3.74) K/mm3 [place] # (Auto) (0.24-0.36) K/mm3 Eos # (Auto) (0.04-0.36) K/mm3 Baso # (Auto) (0.01-0.08) K/mm3 Manual Slide Review Sodium (136-145) mEq/L Potassium (3.5-5.1) mEq/L Chloride (98-107) mEq/L Carbon Dioxide (21-32) mEq/L Anion Gap (5-15) BUN (7-18) mg/dL Creatinine (0.55-1.02) mg/dL Est Cr Clr Drug Dosing mL/min Estimated GFR (MDRD) (>60) mL/min BUN/Creatinine Ratio (14-18) Glucose (83-115) mg/dL Lactic Acid 2.1 H (0.4-2.0) mmol/L Calcium (8.5-10.1) mg/dL Magnesium (1.8-2.4) mg/dl C-Reactive Protein (<1.0) mg/dL Med Orders - Current: Current Medications Acetaminophen (Tylenol) 650 mg PO Q6H PRN PRN Reason: Pain/Fever Aspirin (Halfprin) 81 mg PO DAILY [facility] Last Admin: 03/25/17 08:51 Dose: 81 mg Divalproex Sodium (Depakote Sprinkle) 500 mg PO BID [facility] Last Admin: 03/25/17 08:56 Dose: 500 mg Enoxaparin Sodium (Lovenox) 40 mg SUBCUT DAILY [facility] Last Admin: 03/25/17 08:50 Dose: 40 mg Dextrose/Water (Dextrose 5% In Water) 1,000 mls @ 125 mls/hr IV ASDIRECTED [facility] Last Admin: 03/25/17 04:13 Dose: 125 mls/hr Magnesium Oxide (Magnesium Oxide) 400 mg PO BID [facility] Last Admin: 03/25/17 08:53 Dose: 400 mg Mirtazapine (Remeron) 7.5 mg PO BEDTIME [facility] Last Admin: 03/24/17 21:32 Dose: 7.5 mg Quetiapine Fumarate (Seroquel) 50 mg PO BID [facility] Last Admin: 03/25/17 08:54 Dose: 50 mg Senna/Docusate Sodium (Senna Plus) 2 tab PO BID PRN PRN Reason: Constipation Last Admin: 03/24/17 21:31 Dose: 2 tab Sodium Chloride (Saline Flush) 10 ml FLUSH ASDIRECTED PRN PRN Reason: Keep Vein Open Last Admin: 03/23/17 20:36 Dose: 10 ml Temazepam (Restoril) 7.5 mg PO BEDTIME PRN PRN Reason: Sleep Last Admin: 03/24/17 21:31 Dose: 7.5 mg Discontinued Medications Acetaminophen (Tylenol) 650 mg PO Q4H PRN PRN Reason: Pain/Fever Sodium Chloride (Normal Saline) 1,000 mls @ 999 mls/hr IV ONETIME ONE Stop: 03/23/17 21:01 Last Admin: 03/23/17 20:35 Dose: 999 mls/hr Ceftriaxone Sodium 1 gm/ (Sodium Chloride) 100 mls @ 200 mls/hr IV ONETIME ONE Stop: 03/23/17 20:47 Last Admin: 03/23/17 20:35 Dose: 200 mls/hr Ceftriaxone Sodium 1 gm/ (Sodium Chloride) 100 mls @ 200 mls/hr IV ONETIME ONE Stop: 03/23/17 22:07 Last Admin: 03/23/17 21:46 Dose: 200 mls/hr Dextrose/Water (Dextrose 5% In Water) 500 mls @ 250 mls/hr IV ASDIRECTED [facility] Last Admin: 03/23/17 22:17 Dose: 250 mls/hr Dextrose/Water (Dextrose 5% In Water) Confirm Administered Dose 500 mls @ as directed .ROUTE .STK-MED ONE Stop: 03/23/17 22:21 Last Admin: 03/23/17 23:51 Dose: Not Given Lactated Ringer's (Ringers, Lactated) 1,000 mls @ 200 mls/hr IV ASDIRECTED [facility] Last Admin: 03/24/17 06:49 Dose: 200 mls/hr - Exam Quality Assessment: No: Supplemental Oxygen General: No Acute Distress. No: Oriented HEENT: Pupils Equal, Pupils Reactive, Mucous Membr. Moist/[place] Neck: Supple, Trachea Midline, No JVD Lungs: Clear to Auscultation, Normal Respiratory Effort Cardiovascular: Regular Rate, Regular Rhythm GI/Abdominal Exam: Normal Bowel Sounds, Soft, Non-Tender, No Organomegaly, No Distention, No Abnormal Bruit (Female) Exam: Deferred Back Exam: Normal Inspection, Decreased Range of Motion Extremities: Normal Inspection, Normal Range of Motion, Non-Tender, No Pedal Edema, Normal Capillary Refill Peripheral Pulses: 2+: Posterior Tibial (R), Dorsalis Pedis (L), Dorsalis Pedis (R) Skin: Warm, Dry, Intact Neurological: No New Focal Deficit Psy/Mental Status: Other (She has baseline dementia). No: Normal Affect, Anxious, Agitated, Suicidal Ideation, Homicidal Ideation, Withdrawal Symptoms - Problem List Review Problem List Initiated/Reviewed/Updated: Yes - Plan Plan:: Assessment/Plan: Acute: AMS - 2/2 Metabolic/Toxic Encephalopathy (Hypernatremia and UTI) +/- Anti- convulsant/Psychotropic agents - Risk Factors: Alzheimer's/Vascular Dementia, PD, Cognitive Disorder, and Bipolar Disorder - Supportive Care - Aspiration/Fall Precautions AUTI - 2/2 E. Coli - Risk factors: Cognitive Disorder - Sensitive to Rocephin - Continue current IV Anti-biotic Hypernatremia - Unclear in etiology; suspect dehydration ( LA is still slightly elevated) - 159--> 158 and now 146 - She is currently on D5W at 125 cc/hr - Will repeat lab this evening Mild Hypokalemia - K 3.4 - 2/2 inadequate intake - No need for supplement at this point Thrombocytopenia - Platelet 151--> 105--> 70 - 2/2 Lovenox; hold any anti-coags - Start SCDs now Chronic: CAD HTN GERD Back Pain Alzheimer's/Vascular Dementia PD BPD Cognitive Disorder Seborrheic Dermatitis Plan: She is clinically stable otherwise Continue current treatment Discontinue free water supplement Daily labs DVT/GI prophylaxis: SCDs and H2B PT/OT consult CM/SW for d/c planning Code status: DNR Overall prognosis is poor with her advanced cognitive impairment
--- NOTE | 2017-03-25 10:22 | CR ---
Chest: Portable view of the chest was obtained. Comparison: Prior chest x-ray of 03/23/17. Heart size appears within normal limits for portable technique. No acute parenchymal densities are seen within either lung. Slight scoliosis is noted within the spine with mild degenerative endplate spurring. Bony structures are osteopenic. Impression: 1. Incidental findings. Nothing acute is identified on portable chest x-ray. Diagnostic code #2
[2017-03-25] MEDS: cefTRIAXone 1 GM in Dextrose 5% in Water 100 ML IV SCH ×2 (11:45)
[2017-03-25] MEDS: Mirtazapine 15 MG Tab PO SCH (22:20)
[2017-03-25] MEDS ORDERED: Sodium Chloride 0.45% 1,000 ML IV SCH (23:45)
[2017-03-25] MEDS ORDERED: Potassium Chloride 20 MEQ Tab.ER PO ONE (23:48)
[2017-03-26] MEDS: Sodium Chloride 0.45% 1,000 ML IV SCH ×3 (01:11→20:11)
[2017-03-26] MEDS: Magnesium Oxide 400 MG Tab PO SCH ×2 (08:45→21:01)
[2017-03-26] MEDS: Aspirin 81 MG Tab.EC PO SCH (08:45)
[2017-03-26] MEDS: Divalproex Sodium Delayed-Release 125 MG Cap.Sprink PO SCH ×2 (08:45→21:08)
[2017-03-26] MEDS: Famotidine 20 MG Tab PO SCH ×2 (08:45→21:05)
[2017-03-26] MEDS: QUEtiapine 25 MG Tab PO SCH ×2 (08:46→21:06)
[2017-03-26] MEDS ORDERED: hydrALAZINE 20 MG/ML SDV IVPUSH PRN (08:48)
[2017-03-26] MEDS ORDERED: Metoprolol Tartrate 5 MG/5 ML SDV IVPUSH PRN (08:48)
--- NOTE | 2017-03-26 08:51 | PCM.PN ---
- General Info Date of Service: 03/26/17 Admission Dx/Problem (Free Text): Admission Diagnosis/Problem Admission Diagnosis/Problem Hypernatremia Subjective Update: Follow up Functional Status: Reports: Pain Controlled, Tolerating Diet, Urinating. Denies : New Symptoms - Review of Systems General: Denies: Fever, Weakness, Fatigue, Malaise Pulmonary: Denies: Shortness of Breath Cardiovascular: Denies: Chest Pain Gastrointestinal: Denies: Abdominal Pain, Nausea, Vomiting Genitourinary: Reports: No Symptoms Musculoskeletal: Reports: No Symptoms Skin: Denies: Cyanosis, Mottled, Pallor, Diaphoresis Neurological: Reports: Confusion (baseline dementia), Difficulty Walking, Gait Disturbance. Denies: Weakness Psychiatric: Denies: Depression, Anxiety, Agitation, Hallucinations Systems Review Comment:: No significant overnight or acute issues. Her potassium was low and was supplemented last night. She remains low at 2.9. Her Sodium went up slightly at 148. She is wake and alert with baseline confusion. - Patient Data Vitals - Most Recent: Last Vital Signs Temp 36.3 C 03/26/17 07:24 Pulse 84 03/26/17 07:24 Resp 20 03/26/17 07:24 BP 110/81 03/26/17 07:24 Pulse Ox 100 03/26/17 07:24 Weight - Most Recent: 67.268 kg I&O - Last 24 Hours: Intake & Output 03/25/17 03/26/17 03/26/17 22:59 06:59 14:59 Intake Total 2440 1915 Output Total 3 Balance 2440 1912 Lab Results Last 24 Hours: Laboratory Results - last 24 hr 03/25/17 03/25/17 03/26/17 Range/Units 23:05 23:05 05:54 WBC 6.62 (3.98-10.04) K/mm3 RBC 4.30 (3.98-5.22) M/mm3 Hgb 12.5 (11.2-15.7) gm/L Hct 38.7 (34.1-44.9) % MCV 90.0 (79.4-94.8) fl MCH 29.1 (25.6-32.2) pg MCHC 32.3 (32.2-35.5) g/dl RDW Std Deviation 43.9 (36.4-46.3) fL Plt Count 132 L (182-369) K/mm3 MPV 13.1 H (9.4-12.3) fl Neut % (Auto) 55.5 (34.0-71.1) % Lymph % (Auto) 32.0 (19.3-51.7) % [place] % (Auto) 9.2 (4.7-12.5) % Eos % (Auto) 2.9 (0.7-5.8) Baso % (Auto) 0.2 (0.1-1.2) % Neut # (Auto) 3.68 (1.56-6.13) K/mm3 Lymph # (Auto) 2.12 (1.18-3.74) K/mm3 [place] # (Auto) 0.61 H (0.24-0.36) K/mm3 Eos # (Auto) 0.19 (0.04-0.36) K/mm3 Baso # (Auto) 0.01 (0.01-0.08) K/mm3 Sodium 147 H (136-145) mEq/L Potassium 2.7 L (3.5-5.1) mEq/L Chloride 111 H (98-107) mEq/L Carbon Dioxide 24 (21-32) mEq/L Anion Gap 14.7 (5-15) BUN 7 (7-18) mg/dL Creatinine 0.8 (0.55-1.02) mg/dL Est Cr Clr Drug Dosing 45.84 mL/min Estimated GFR (MDRD) > 60 (>60) mL/min BUN/Creatinine Ratio 8.8 L (14-18) Glucose 104 (83-115) mg/dL Lactic Acid 4.3 H (0.4-2.0) mmol/L Calcium 8.1 L (8.5-10.1) mg/dL Magnesium (1.8-2.4) mg/dl C-Reactive Protein (<1.0) mg/dL 03/26/17 03/26/17 Range/Units 05:54 05:54 WBC (3.98-10.04) K/mm3 RBC (3.98-5.22) M/mm3 Hgb (11.2-15.7) gm/L Hct (34.1-44.9) % MCV (79.4-94.8) fl MCH (25.6-32.2) pg MCHC (32.2-35.5) g/dl RDW Std Deviation (36.4-46.3) fL Plt Count (182-369) K/mm3 MPV (9.4-12.3) fl Neut % (Auto) (34.0-71.1) % Lymph % (Auto) (19.3-51.7) % [place] % (Auto) (4.7-12.5) % Eos % (Auto) (0.7-5.8) Baso % (Auto) (0.1-1.2) % Neut # (Auto) (1.56-6.13) K/mm3 Lymph # (Auto) (1.18-3.74) K/mm3 [place] # (Auto) (0.24-0.36) K/mm3 Eos # (Auto) (0.04-0.36) K/mm3 Baso # (Auto) (0.01-0.08) K/mm3 Sodium 148 H (136-145) mEq/L Potassium 3.2 L (3.5-5.1) mEq/L Chloride 115 H (98-107) mEq/L Carbon Dioxide 25 (21-32) mEq/L Anion Gap 11.2 (5-15) BUN 5 L (7-18) mg/dL Creatinine 0.6 (0.55-1.02) mg/dL Est Cr Clr Drug Dosing 61.12 mL/min Estimated GFR (MDRD) > 60 (>60) mL/min BUN/Creatinine Ratio 8.3 L (14-18) Glucose 91 (83-115) mg/dL Lactic Acid 2.4 H (0.4-2.0) mmol/L Calcium 8.1 L (8.5-10.1) mg/dL Magnesium 2.2 (1.8-2.4) mg/dl C-Reactive Protein 1.5 H* (<1.0) mg/dL Jaswinder Results Last 24 Hours: Microbiology 03/24/17 16:21 Respiratory Virus Panel (PCR) (JASWINDER) - Final Nasopharyngeal Swab - Nare, Unspecified Med Orders - Current: Current Medications Acetaminophen (Tylenol) 650 mg PO Q6H PRN PRN Reason: Pain/Fever Aspirin (Halfprin) 81 mg PO DAILY [facility] Last Admin: 03/25/17 08:51 Dose: 81 mg Divalproex Sodium (Depakote Sprinkle) 500 mg PO BID [facility] Last Admin: 03/25/17 22:19 Dose: 500 mg Famotidine (Pepcid) 20 mg PO BID [facility] Dextrose/Water (Dextrose 5% In Water) 1,000 mls @ 125 mls/hr IV ASDIRECTED [facility] Last Admin: 03/25/17 15:16 Dose: 125 mls/hr Ceftriaxone Sodium 1 gm/ (Dextrose/Water) 100 mls @ 200 mls/hr IV Q24H [facility] Last Admin: 03/25/17 11:45 Dose: 200 mls/hr Sodium Chloride (Sodium Chloride 0.45%) 1,000 mls @ 999 mls/hr IV ASDIRECTED [facility] Last Admin: 03/26/17 00:11 Dose: 999 mls/hr Sodium Chloride (Sodium Chloride 0.45%) 1,000 mls @ 125 mls/hr IV ASDIRECTED [facility] Last Admin: 03/26/17 01:11 Dose: 125 mls/hr Magnesium Oxide (Magnesium Oxide) 400 mg PO BID [facility] Last Admin: 03/25/17 22:21 Dose: 400 mg Mirtazapine (Remeron) 7.5 mg PO BEDTIME [facility] Last Admin: 03/25/17 22:20 Dose: 7.5 mg Quetiapine Fumarate (Seroquel) 50 mg PO BID [facility] Last Admin: 03/25/17 22:21 Dose: 50 mg Senna/Docusate Sodium (Senna Plus) 2 tab PO BID PRN PRN Reason: Constipation Last Admin: 03/24/17 21:31 Dose: 2 tab Sodium Chloride (Saline Flush) 10 ml FLUSH ASDIRECTED PRN PRN Reason: Keep Vein Open Last Admin: 03/23/17 20:36 Dose: 10 ml Temazepam (Restoril) 7.5 mg PO BEDTIME PRN PRN Reason: Sleep Last Admin: 03/24/17 21:31 Dose: 7.5 mg Discontinued Medications Acetaminophen (Tylenol) 650 mg PO Q4H PRN PRN Reason: Pain/Fever Enoxaparin Sodium (Lovenox) 40 mg SUBCUT DAILY [facility] Last Admin: 03/25/17 08:50 Dose: 40 mg Sodium Chloride (Normal Saline) 1,000 mls @ 999 mls/hr IV ONETIME ONE Stop: 03/23/17 21:01 Last Admin: 03/23/17 20:35 Dose: 999 mls/hr Ceftriaxone Sodium 1 gm/ (Sodium Chloride) 100 mls @ 200 mls/hr IV ONETIME ONE Stop: 03/23/17 20:47 Last Admin: 03/23/17 20:35 Dose: 200 mls/hr Ceftriaxone Sodium 1 gm/ (Sodium Chloride) 100 mls @ 200 mls/hr IV ONETIME ONE Stop: 03/23/17 22:07 Last Admin: 03/23/17 21:46 Dose: 200 mls/hr Dextrose/Water (Dextrose 5% In Water) 500 mls @ 250 mls/hr IV ASDIRECTED [facility] Last Admin: 03/23/17 22:17 Dose: 250 mls/hr Dextrose/Water (Dextrose 5% In Water) Confirm Administered Dose 500 mls @ as directed .ROUTE .STK-MED ONE Stop: 03/23/17 22:21 Last Admin: 03/23/17 23:51 Dose: Not Given Lactated Ringer's (Ringers, Lactated) 1,000 mls @ 200 mls/hr IV ASDIRECTED [facility] Last Admin: 03/24/17 06:49 Dose: 200 mls/hr Potassium Chloride (Klor-Con M20) 60 meq PO ONETIME ONE Stop: 03/25/17 23:49 Last Admin: 03/26/17 00:23 Dose: 60 meq - Exam General: Alert, No Acute Distress HEENT: Pupils Equal, Pupils Reactive, Mucous Membr. Moist/[place] Neck: Supple, Trachea Midline Lungs: Normal Respiratory Effort, Decreased Breath Sounds Cardiovascular: Regular Rate, Regular Rhythm GI/Abdominal Exam: Normal Bowel Sounds, Soft, Non-Tender, No Organomegaly, No Distention, No Abnormal Bruit, No Mass (Female) Exam: Deferred Back Exam: Normal Inspection, Decreased Range of Motion Extremities: Normal Inspection, Normal Range of Motion, Non-Tender, No Pedal Edema, Normal Capillary Refill Peripheral Pulses: 2+: Dorsalis Pedis (L), Dorsalis Pedis (R) Skin: Warm, Dry, Intact Neurological: No New Focal Deficit Psy/Mental Status: Alert. No: Normal Affect, Agitated, Withdrawal Symptoms - Problem List Review Problem List Initiated/Reviewed/Updated: Yes - My Orders Last 24 Hours: My Active Orders 03/25/17 11:30 cefTRIAXone [Rocephin] 1 gm Dextrose 5% in Water 100 ml IV Q24H 03/25/17 13:01 Consult to Physical Therapy [PT Evaluation and Treatment] [CONS] Routine 03/25/17 23:00 Antiembolic Devices [RC] PER UNIT ROUTINE SCD [Sequential Compression Device] [OM.PC] Routine 03/25/17 23:45 Sodium Chloride 0.45% 1,000 ml IV ASDIRECTED Sodium Chloride 0.45% 1,000 ml IV ASDIRECTED 03/26/17 08:48 Metoprolol Tartrate [Lopressor] 5 mg IVPUSH Q4H PRN hydrALAZINE [Apresoline] 20 mg IVPUSH Q4H PRN 03/26/17 09:00 Famotidine [Pepcid] 20 mg PO BID Hydrochlorothiazide 25 mg PO BIDDIURETIC Potassium Rep Pharmacy to Dose [Pharmacy to Dose - Potassium Replacement] 1 dose .XX ASDIRECTED - Plan Plan:: Assessment/Plan: Acute: S/p AMS, Improved - She seems to be at baseline now - 2/2 Metabolic/Toxic Encephalopathy (Hypernatremia and UTI) +/- Anti- convulsant/Psychotropic agents - Risk Factors: Alzheimer's/Vascular Dementia, PD, Cognitive Disorder, and Bipolar Disorder - Supportive Care - Aspiration/Fall Precautions AUTI, Unchanged - 2/2 E. Coli - Risk factors: Cognitive Disorder - Sensitive to Rocephin- day 4 of Abx - Continue current IV Anti-biotic Hypernatremia, Slightly Worse - Unclear in etiology; suspect dehydration ( LA is still slightly elevated) - 159--> 158--> 146--> 148 - Repeat lab later today - Continue HCTZ 25 mg po BID - D/c current IVF and will start D51/2NS with 20 mEq at 125 cc/hr Hypokalemia, Worse - K 3.4--> now 2.3 - 2/2 inadequate intake - Pharmacy to replete and monitor Thrombocytopenia, Improved - Platelet 151--> 105--> 70--> now at 132 - 2/2 Lovenox; hold any anti-coags - Continue SCDs Chronic: CAD HTN GERD Back Pain Alzheimer's/Vascular Dementia PD BPD Cognitive Disorder Seborrheic Dermatitis Plan: She remains clinically stable otherwise Continue current treatment Daily labs DVT/GI prophylaxis: SCDs and H2B Continue PT/OT CM/SW for d/c planning Code status: DNR Overall prognosis is poor with her advanced cognitive impairment. LOS anticipate > 96 hrs due to slow response to treatment
[2017-03-26] MEDS: Potassium Chloride 20 MEQ Tab.ER PO SCH ×2 (10:25→13:13)
[2017-03-26] MEDS: Hydrochlorothiazide 25 MG Tab PO SCH ×2 (10:25→13:13)
[2017-03-26] MEDS: cefTRIAXone 1 GM in Dextrose 5% in Water 100 ML IV SCH ×2 (10:32)
[2017-03-26] MEDS: D5 1/2 NS w/ 20 mEq/L KCl 1,000 ML IV SCH (20:30)
[2017-03-26] MEDS: Mirtazapine 15 MG Tab PO SCH (21:07)
[2017-03-27] MEDS: D5 1/2 NS w/ 20 mEq/L KCl 1,000 ML IV SCH ×3 (04:40→21:29)
[2017-03-27] MEDS: Hydrochlorothiazide 25 MG Tab PO SCH ×2 (06:34→15:32)
--- NOTE | 2017-03-27 07:24 | PCM.PN ---
- General Info Date of Service: 03/27/17 Admission Dx/Problem (Free Text): Admission Diagnosis/Problem Admission Diagnosis/Problem Hypernatremia Subjective Update: Follow up Functional Status: Reports: Pain Controlled, Tolerating Diet, Urinating. Denies : New Symptoms - Review of Systems General: Denies: Fever, Weakness, Fatigue, Malaise, Chills HEENT: Reports: No Symptoms Pulmonary: Denies: Shortness of Breath Cardiovascular: Denies: Chest Pain Gastrointestinal: Denies: Abdominal Pain, Nausea, Vomiting Genitourinary: Reports: No Symptoms Musculoskeletal: Reports: No Symptoms Neurological: Reports: Confusion (baseline confusion due to moderately advanced dementia), Difficulty Walking, Gait Disturbance. Denies: Weakness Psychiatric: Denies: Depression, Anxiety, Agitation, Hallucinations Systems Review Comment:: No significant overnight or acute issues. She is doing just fine. Her hypernatremia finally resolved. She remains afebrile w/o leukocytosis. No new complaints reported by her night nurse. - Patient Data Vitals - Most Recent: Last Vital Signs Temp 37.0 C 03/27/17 02:15 Pulse 92 03/27/17 02:15 Resp 16 03/27/17 02:15 BP 96/48 L 03/27/17 02:16 Pulse Ox 97 03/27/17 02:15 Weight - Most Recent: 65.771 kg I&O - Last 24 Hours: Intake & Output 03/26/17 03/27/17 03/27/17 22:59 06:59 14:59 Intake Total 3555 1595 Balance 3555 1595 Lab Results Last 24 Hours: Laboratory Results - last 24 hr 03/26/17 03/26/17 03/27/17 Range/Units 19:44 19:44 06:50 WBC 8.08 (3.98-10.04) K/mm3 RBC 4.23 (3.98-5.22) M/mm3 Hgb 12.5 (11.2-15.7) gm/L Hct 38.5 (34.1-44.9) % MCV 91.0 (79.4-94.8) fl MCH 29.6 (25.6-32.2) pg MCHC 32.5 (32.2-35.5) g/dl RDW Std Deviation 44.2 (36.4-46.3) fL Plt Count 132 L (182-369) K/mm3 MPV 12.9 H (9.4-12.3) fl Neut % (Auto) 64.3 (34.0-71.1) % Lymph % (Auto) 23.9 (19.3-51.7) % [place] % (Auto) 9.2 (4.7-12.5) % Eos % (Auto) 2.2 (0.7-5.8) Baso % (Auto) 0.2 (0.1-1.2) % Neut # (Auto) 5.19 (1.56-6.13) K/mm3 Lymph # (Auto) 1.93 (1.18-3.74) K/mm3 [place] # (Auto) 0.74 H (0.24-0.36) K/mm3 Eos # (Auto) 0.18 (0.04-0.36) K/mm3 Baso # (Auto) 0.02 (0.01-0.08) K/mm3 Sodium 147 H (136-145) mEq/L Potassium 4.0 (3.5-5.1) mEq/L Chloride 112 H (98-107) mEq/L Carbon Dioxide 24 (21-32) mEq/L Anion Gap 15.0 (5-15) BUN 4 L (7-18) mg/dL Creatinine 0.7 (0.55-1.02) mg/dL Est Cr Clr Drug Dosing 52.39 mL/min Estimated GFR (MDRD) > 60 (>60) mL/min BUN/Creatinine Ratio 5.7 L (14-18) Glucose 101 (83-115) mg/dL Calcium 8.4 L (8.5-10.1) mg/dL Magnesium 2.0 (1.8-2.4) mg/dl Med Orders - Current: Current Medications Acetaminophen (Tylenol) 650 mg PO Q6H PRN PRN Reason: Pain/Fever Last Admin: 03/26/17 21:58 Dose: 650 mg Aspirin (Halfprin) 81 mg PO DAILY [facility] Last Admin: 03/26/17 08:45 Dose: 81 mg Divalproex Sodium (Depakote Sprinkle) 500 mg PO BID [facility] Last Admin: 03/26/17 21:08 Dose: 500 mg Famotidine (Pepcid) 20 mg PO BID [facility] Last Admin: 03/26/17 21:05 Dose: 20 mg Hydralazine HCl (Apresoline) 20 mg IVPUSH Q4H PRN PRN Reason: Hypertension Hydrochlorothiazide (Hydrochlorothiazide) 25 mg PO BIDDIURETIC [facility] Last Admin: 03/27/17 06:34 Dose: 25 mg Ceftriaxone Sodium 1 gm/ (Dextrose/Water) 100 mls @ 200 mls/hr IV Q24H [facility] Last Admin: 03/26/17 10:32 Dose: 200 mls/hr Potassium Chloride/Dextrose/Sod Cl (D5 1/2 Ns W/ 20 Meq/L Kcl) 1,000 mls @ 125 mls/hr IV ASDIRECTED [facility] Last Admin: 03/27/17 04:40 Dose: 125 mls/hr Magnesium Oxide (Magnesium Oxide) 400 mg PO BID [facility] Last Admin: 03/26/17 21:01 Dose: 400 mg Metoprolol Tartrate (Lopressor) 5 mg IVPUSH Q4H PRN PRN Reason: Tachycardia Last Admin: 03/26/17 23:19 Dose: 5 mg Mirtazapine (Remeron) 7.5 mg PO BEDTIME [facility] Last Admin: 03/26/17 21:07 Dose: 7.5 mg Potassium Chloride (Pharmacy To Dose - Potassium Replacement) 1 dose .XX ASDIRECTED [facility] Quetiapine Fumarate (Seroquel) 50 mg PO BID [facility] Last Admin: 03/26/17 21:06 Dose: 50 mg Senna/Docusate Sodium (Senna Plus) 2 tab PO BID PRN PRN Reason: Constipation Last Admin: 03/24/17 21:31 Dose: 2 tab Sodium Chloride (Saline Flush) 10 ml FLUSH ASDIRECTED PRN PRN Reason: Keep Vein Open Last Admin: 03/23/17 20:36 Dose: 10 ml Temazepam (Restoril) 7.5 mg PO BEDTIME PRN PRN Reason: Sleep Last Admin: 03/24/17 21:31 Dose: 7.5 mg Discontinued Medications Acetaminophen (Tylenol) 650 mg PO Q4H PRN PRN Reason: Pain/Fever Enoxaparin Sodium (Lovenox) 40 mg SUBCUT DAILY [facility] Last Admin: 03/25/17 08:50 Dose: 40 mg Sodium Chloride (Normal Saline) 1,000 mls @ 999 mls/hr IV ONETIME ONE Stop: 03/23/17 21:01 Last Admin: 03/23/17 20:35 Dose: 999 mls/hr Ceftriaxone Sodium 1 gm/ (Sodium Chloride) 100 mls @ 200 mls/hr IV ONETIME ONE Stop: 03/23/17 20:47 Last Admin: 03/23/17 20:35 Dose: 200 mls/hr Ceftriaxone Sodium 1 gm/ (Sodium Chloride) 100 mls @ 200 mls/hr IV ONETIME ONE Stop: 03/23/17 22:07 Last Admin: 03/23/17 21:46 Dose: 200 mls/hr Dextrose/Water (Dextrose 5% In Water) 500 mls @ 250 mls/hr IV ASDIRECTED [facility] Last Admin: 03/23/17 22:17 Dose: 250 mls/hr Dextrose/Water (Dextrose 5% In Water) Confirm Administered Dose 500 mls @ as directed .ROUTE .[facility]-MED ONE Stop: 03/23/17 22:21 Last Admin: 03/23/17 23:51 Dose: Not Given Lactated Ringer's (Ringers, Lactated) 1,000 mls @ 200 mls/hr IV ASDIRECTED [facility] Last Admin: 03/24/17 06:49 Dose: 200 mls/hr Dextrose/Water (Dextrose 5% In Water) 1,000 mls @ 125 mls/hr IV ASDIRECTED [facility] Last Admin: 03/25/17 15:16 Dose: 125 mls/hr Sodium Chloride (Sodium Chloride 0.45%) 1,000 mls @ 999 mls/hr IV ASDIRECTED [facility] Last Admin: 03/26/17 00:11 Dose: 999 mls/hr Sodium Chloride (Sodium Chloride 0.45%) 1,000 mls @ 125 mls/hr IV ASDIRECTED [facility] Last Infusion: 03/26/17 17:36 Dose: Infused Potassium Chloride (Klor-Con M20) 60 meq PO ONETIME ONE Stop: 03/25/17 23:49 Last Admin: 03/26/17 00:23 Dose: 60 meq Potassium Chloride (Klor-Con M20) 40 meq PO Q4H [facility] Stop: 03/26/17 13:01 Last Admin: 03/26/17 13:13 Dose: 40 meq - Exam General: Alert, Cooperative, No Acute Distress, Other HEENT: Pupils Equal, Pupils Reactive, Mucous Membr. Moist/[place] Neck: Supple, Trachea Midline, No JVD Lungs: Clear to Auscultation, Normal Respiratory Effort Cardiovascular: Regular Rate, Regular Rhythm GI/Abdominal Exam: Normal Bowel Sounds, Soft, Non-Tender, No Organomegaly, No Distention, No Abnormal Bruit (Female) Exam: Deferred Back Exam: Normal Inspection, Decreased Range of Motion Extremities: Normal Inspection, Normal Range of Motion, Non-Tender, No Pedal Edema, Normal Capillary Refill Peripheral Pulses: 2+: Dorsalis Pedis (L), Dorsalis Pedis (R) Skin: Warm, Dry, Intact Neurological: No New Focal Deficit Psy/Mental Status: Alert, Other (Awake). No: Normal Affect - Problem List Review Problem List Initiated/Reviewed/Updated: Yes - My Orders Last 24 Hours: My Active Orders 03/26/17 08:48 Metoprolol Tartrate [Lopressor] 5 mg IVPUSH Q4H PRN hydrALAZINE [Apresoline] 20 mg IVPUSH Q4H PRN 03/26/17 09:00 Famotidine [Pepcid] 20 mg PO BID Hydrochlorothiazide 25 mg PO BIDDIURETIC Potassium Rep Pharmacy to Dose [Pharmacy to Dose - Potassium Replacement] 1 dose .XX ASDIRECTED 03/26/17 20:15 D5 1/2 NS w/ 20 mEq/L KCl 1,000 ml IV ASDIRECTED - Plan Plan:: Assessment/Plan: Acute: AUTI, Unchanged - 2/2 E. Coli - Risk factors: Cognitive Disorder - Sensitive to Rocephin- day 5 of Abx; d/c after dose today - Continue current IV Anti-biotic Thrombocytopenia, Improved - Platelet 151--> 105--> 70--> now 132 - 2/2 Lovenox; hold any anti-coags - Continue SCDs Resolved: S/p AMS - She seems to be at baseline now - 2/2 Metabolic/Toxic Encephalopathy (Hypernatremia and UTI) +/- Anti- convulsant/Psychotropic agents - Risk Factors: Alzheimer's/Vascular Dementia, PD, Cognitive Disorder, and Bipolar Disorder - Supportive Care - Aspiration/Fall Precautions S/p Hypernatremia - Unclear in etiology; suspect dehydration ( LA is still slightly elevated) - 159--> 158--> 146--> 148--> 144 - Repeat lab later today - Continue HCTZ 25 mg po BID - D/c current IVF and will start D51/2NS with 20 mEq at 125 cc/hr S/p Hypokalemia - K 3.4--> 2.3--> 3.8 - 2/2 inadequate intake - Pharmacy to replete and monitor Chronic: CAD HTN GERD Back Pain Alzheimer's/Vascular Dementia PD BPD Cognitive Disorder Seborrheic Dermatitis Plan: She remains clinically stable otherwise Continue current treatment Routine daily labs DVT/GI prophylaxis: SCDs and H2B Continue PT/OT CM/SW for d/c planning Code status: DNR LOS > 96 hrs due to slow response to treatment. Possible d/c in AM
[2017-03-27] MEDS: Famotidine 20 MG Tab PO SCH ×2 (08:32→20:13)
[2017-03-27] MEDS: Aspirin 81 MG Tab.EC PO SCH (08:33)
[2017-03-27] MEDS: QUEtiapine 25 MG Tab PO SCH ×2 (08:34→20:13)
[2017-03-27] MEDS: Divalproex Sodium Delayed-Release 125 MG Cap.Sprink PO SCH ×2 (08:34→20:12)
[2017-03-27] MEDS: Magnesium Oxide 400 MG Tab PO SCH ×2 (08:35→20:13)
[2017-03-27] MEDS: cefTRIAXone 1 GM in Dextrose 5% in Water 100 ML IV SCH ×2 (11:24)
[2017-03-27] MEDS: Mirtazapine 15 MG Tab PO SCH (20:12)
[2017-03-28] MEDS: Divalproex Sodium Delayed-Release 125 MG Cap.Sprink PO SCH (08:25)
[2017-03-28] MEDS: Aspirin 81 MG Tab.EC PO SCH (08:25)
[2017-03-28] MEDS: Magnesium Oxide 400 MG Tab PO SCH (08:25)
[2017-03-28] MEDS: Famotidine 20 MG Tab PO SCH (08:25)
[2017-03-28] MEDS: QUEtiapine 25 MG Tab PO SCH (08:25)
[2017-03-28 08:30] VITALS: BP 130/62
--- NOTE | 2017-03-28 10:52 | PCM.DCSUM1 ---
Discharge Summary - Hospital Course Brief History: 76 year old female with a baseline dementia who was brought over to ED for evaluation of lethargy. Her chief of complaint was associated with tachycardia and change in appetite. The patient was admitted to the floor for evaluation and management of AMS. - Discharge Data Discharge Date: 03/28/17 Discharge Disposition: DC/[facility] Condition: Good - Discharge Diagnosis/Problem(s) (1) Hypernatremia SNOMED Code(s): 10540119 ICD Code: E87.0 - HYPEROSMOLALITY AND HYPERNATREMIA Status: Resolved (2) UTI (urinary tract infection) SNOMED Code(s): 04499607 ICD Code: N39.0 - URINARY TRACT INFECTION, SITE NOT SPECIFIED Status: Resolved Qualifiers: Urinary tract infection type: acute cystitis Hematuria presence: without hematuria Qualified Code(s): N30.00 - Acute cystitis without hematuria (3) Alzheimer's dementia SNOMED Code(s): 41199862 ICD Code: G30.9 - ALZHEIMER'S DISEASE, UNSPECIFIED Status: Chronic Qualifiers: Alzheimer's disease onset: unspecified onset Dementia behavioral disturbance: with behavioral disturbance Qualified Code(s): G30.9 - Alzheimer' s disease, unspecified; F02.81 - Dementia in other diseases classified elsewhere with behavioral disturbance; F02.81 - Dementia in other diseases classified elsewhere with behavioral disturbance; F02.81 - Dementia in other diseases classified elsewhere with behavioral disturbance - Patient Summary/Data Operative Procedure(s) Performed: None Complications: None Consults: Consultations 03/25/17 13:01 Consult to Physical Therapy [PT Evaluation and Treatment] [CONS] Routine Labs Pending at D/C: None Recommended Follow-up Testing/Procedures: None Planned Operative Procedure(s) after DC: None Hospital Course: Patient was primarily admitted for AMS. She carried a hx/o baseline dementia. After initial diagnostic data and lab tests, we felt her increased confusion was due to toxic/metabolic encephlaopathy from combined hypernatremia and UTI. Once admitted to the floor, she was continued on intravenous antibiotic she received initially in ED. She grew E. coli on her UA. Her blood cultures and influenza screening were both negative. Patient received a total of 5 day course treatment with Rocephin. As for her hypernatremia, we felt this was related to her poor intake. She had advanced dementia and not able to communicate her needs. On presentation, she was found with a sodium level of 159. She received hydration and supportive. Slowly, her sodium improved until her level was at therapeutic range (144-145). Her hospital course was fairly uncomplicated. The rest of her chronic medical illness remained stable during this admission and was stable upon discharge. We recommend patient to follow up with her PCP in 1 week. She is high risk for aspiration and infections (pneumonia, bladder and skin) due to immobility. - Patient Instructions Diet: Usual Diet as Tolerated Activity: As Tolerated Driving: Do Not Drive Showering/Bathing: May Shower, No Tub Bathing/Swimming Notify Provider of: Fever, Increased Pain, Nausea and/or Vomiting Other/Special Instructions: - Please resume all home medications as directed. - Continue routine home activities. - Call your family doctor for any questions or concens after discharge. - Follow up with you family doctor in 1 week - Discharge Plan Home Medications: Home Meds Acetaminophen [Tylenol] 650 mg PO Q6H PRN 07/04/16 [History] Docusate Sodium/Sennosides [Senna Plus] 2 tab PO BID 07/04/16 [History] Divalproex Sodium [Depakote Sprinkle] 500 mg PO BID 07/19/16 [History] QUEtiapine [SEROquel] 50 mg PO BID 07/19/16 [History] Aspirin [Halfprin] 81 mg PO DAILY 03/23/17 [History] Magnesium 250 mg PO BID 03/23/17 [History] Melatonin 6 mg PO BEDTIME 03/23/17 [History] Mirtazapine 7.5 mg PO BEDTIME 03/23/17 [History] traMADol [Ultram] 50 mg PO BID 03/23/17 [History] Patient Handouts: Hypernatremia, [id number], Urinary Tract Infection, Adult Referrals: Haris Alex MD [Primary Care Provider] - - Discharge Summary/Plan Comment DC Time >30 min.: Yes (45 mins) Discharge Summary/Plan Comment: Discharge back to local [facility] - General Info Date of Service: 03/28/17 Admission Dx/Problem (Free Text: Admission Diagnosis/Problem Admission Diagnosis/Problem Hypernatremia Subjective Update: Follow up Functional Status: Reports: Pain Controlled, Tolerating Diet, Urinating. Denies : New Symptoms - Review of Systems General: Denies: Fever HEENT: Reports: No Symptoms Pulmonary: Denies: Shortness of Breath Cardiovascular: Denies: Chest Pain Gastrointestinal: Denies: Abdominal Pain, Nausea, Vomiting Genitourinary: Reports: No Symptoms Musculoskeletal: Reports: No Symptoms. Denies: Other Skin: Denies: Cyanosis, Mottled, Pallor Neurological: Reports: Confusion (baseline dementia), Difficulty Walking, Gait Disturbance Psychiatric: Denies: Mood Lability, Agitation, Hallucinations Systems Review Comment: No significant overnight or acute issues. She is doing relatively well. Her sodium level still wnl. No new complaints. - Patient Data Vitals - Most Recent: Last Vital Signs Temp 37.3 C 03/28/17 08:26 Pulse 80 03/28/17 07:50 Resp 18 03/28/17 07:50 BP 130/62 03/28/17 08:29 Pulse Ox 95 03/28/17 07:50 Weight - Most Recent: 65.589 kg I&O - Last 24 hours: Intake & Output 03/27/17 03/28/17 03/28/17 22:59 06:59 14:59 Intake Total 2571 2248 Balance 2571 2248 Lab Results - Last 24 hrs: Laboratory Results - last 24 hr 03/28/17 03/28/17 03/28/17 Range/Units 06:10 06:10 06:10 WBC 6.45 (3.98-10.04) K/mm3 RBC 4.26 (3.98-5.22) M/mm3 Hgb 12.7 (11.2-15.7) gm/L Hct 38.5 (34.1-44.9) % MCV 90.4 (79.4-94.8) fl MCH 29.8 (25.6-32.2) pg MCHC 33.0 (32.2-35.5) g/dl RDW Std Deviation 44.1 (36.4-46.3) fL Plt Count 121 L (182-369) K/mm3 Neut % (Auto) 44.4 (34.0-71.1) % Lymph % (Auto) 36.9 (19.3-51.7) % [place] % (Auto) 13.2 H (4.7-12.5) % Eos % (Auto) 4.7 (0.7-5.8) Baso % (Auto) 0.3 (0.1-1.2) % Neut # (Auto) 2.87 (1.56-6.13) K/mm3 Lymph # (Auto) 2.38 (1.18-3.74) K/mm3 [place] # (Auto) 0.85 H (0.24-0.36) K/mm3 Eos # (Auto) 0.30 (0.04-0.36) K/mm3 Baso # (Auto) 0.02 (0.01-0.08) K/mm3 Manual Slide Review Abnormal smear Sodium 145 (136-145) mEq/L Potassium 4.4 (3.5-5.1) mEq/L Chloride 111 H (98-107) mEq/L Carbon Dioxide 25 (21-32) mEq/L Anion Gap 13.4 (5-15) BUN 4 L (7-18) mg/dL Creatinine 0.6 (0.55-1.02) mg/dL Est Cr Clr Drug Dosing 61.12 mL/min Estimated GFR (MDRD) > 60 (>60) mL/min BUN/Creatinine Ratio 6.7 L (14-18) Glucose 92 (83-115) mg/dL POC Glucose (83-110) mg/dL Lactic Acid 2.4 H (0.4-2.0) mmol/L Calcium 8.5 (8.5-10.1) mg/dL Magnesium 2.1 (1.8-2.4) mg/dl C-Reactive Protein 1.2 H* (<1.0) mg/dL 03/28/17 Range/Units 10:35 WBC (3.98-10.04) K/mm3 RBC (3.98-5.22) M/mm3 Hgb (11.2-15.7) gm/L Hct (34.1-44.9) % MCV (79.4-94.8) fl MCH (25.6-32.2) pg MCHC (32.2-35.5) g/dl RDW Std Deviation (36.4-46.3) fL Plt Count (182-369) K/mm3 Neut % (Auto) (34.0-71.1) % Lymph % (Auto) (19.3-51.7) % [place] % (Auto) (4.7-12.5) % Eos % (Auto) (0.7-5.8) Baso % (Auto) (0.1-1.2) % Neut # (Auto) (1.56-6.13) K/mm3 Lymph # (Auto) (1.18-3.74) K/mm3 [place] # (Auto) (0.24-0.36) K/mm3 Eos # (Auto) (0.04-0.36) K/mm3 Baso # (Auto) (0.01-0.08) K/mm3 Manual Slide Review Sodium (136-145) mEq/L Potassium (3.5-5.1) mEq/L Chloride (98-107) mEq/L Carbon Dioxide (21-32) mEq/L Anion Gap (5-15) BUN (7-18) mg/dL Creatinine (0.55-1.02) mg/dL Est Cr Clr Drug Dosing mL/min Estimated GFR (MDRD) (>60) mL/min BUN/Creatinine Ratio (14-18) Glucose (83-115) mg/dL POC Glucose 97 (83-110) mg/dL Lactic Acid (0.4-2.0) mmol/L Calcium (8.5-10.1) mg/dL Magnesium (1.8-2.4) mg/dl C-Reactive Protein (<1.0) mg/dL Med Orders - Current: Current Medications Acetaminophen (Tylenol) 650 mg PO Q6H PRN PRN Reason: Pain/Fever Last Admin: 03/26/17 21:58 Dose: 650 mg Aspirin (Halfprin) 81 mg PO DAILY [facility] Last Admin: 03/28/17 08:25 Dose: 81 mg Divalproex Sodium (Depakote Sprinkle) 500 mg PO BID [facility] Last Admin: 03/28/17 08:25 Dose: 500 mg Famotidine (Pepcid) 20 mg PO BID [facility] Last Admin: 03/28/17 08:25 Dose: 20 mg Hydralazine HCl (Apresoline) 20 mg IVPUSH Q4H PRN PRN Reason: Hypertension Magnesium Oxide (Magnesium Oxide) 400 mg PO BID [facility] Last Admin: 03/28/17 08:25 Dose: 400 mg Metoprolol Tartrate (Lopressor) 5 mg IVPUSH Q4H PRN PRN Reason: Tachycardia Last Admin: 03/26/17 23:19 Dose: 5 mg Mirtazapine (Remeron) 7.5 mg PO BEDTIME [facility] Last Admin: 03/27/17 20:12 Dose: 7.5 mg Potassium Chloride (Pharmacy To Dose - Potassium Replacement) 1 dose .XX ASDIRECTED [facility] Quetiapine Fumarate (Seroquel) 50 mg PO BID [facility] Last Admin: 03/28/17 08:25 Dose: 50 mg Senna/Docusate Sodium (Senna Plus) 2 tab PO BID PRN PRN Reason: Constipation Last Admin: 03/24/17 21:31 Dose: 2 tab Sodium Chloride (Saline Flush) 10 ml FLUSH ASDIRECTED PRN PRN Reason: Keep Vein Open Last Admin: 03/23/17 20:36 Dose: 10 ml Temazepam (Restoril) 7.5 mg PO BEDTIME PRN PRN Reason: Sleep Last Admin: 03/24/17 21:31 Dose: 7.5 mg Discontinued Medications Acetaminophen (Tylenol) 650 mg PO Q4H PRN PRN Reason: Pain/Fever Enoxaparin Sodium (Lovenox) 40 mg SUBCUT DAILY [facility] Last Admin: 03/25/17 08:50 Dose: 40 mg Hydrochlorothiazide (Hydrochlorothiazide) 25 mg PO BIDDIURETIC [facility] Stop: 03/27/17 16:00 Last Admin: 03/27/17 15:32 Dose: 25 mg Sodium Chloride (Normal Saline) 1,000 mls @ 999 mls/hr IV ONETIME ONE Stop: 03/23/17 21:01 Last Admin: 03/23/17 20:35 Dose: 999 mls/hr Ceftriaxone Sodium 1 gm/ (Sodium Chloride) 100 mls @ 200 mls/hr IV ONETIME ONE Stop: 03/23/17 20:47 Last Admin: 03/23/17 20:35 Dose: 200 mls/hr Ceftriaxone Sodium 1 gm/ (Sodium Chloride) 100 mls @ 200 mls/hr IV ONETIME ONE Stop: 03/23/17 22:07 Last Admin: 03/23/17 21:46 Dose: 200 mls/hr Dextrose/Water (Dextrose 5% In Water) 500 mls @ 250 mls/hr IV ASDIRECTED [facility] Last Admin: 03/23/17 22:17 Dose: 250 mls/hr Dextrose/Water (Dextrose 5% In Water) Confirm Administered Dose 500 mls @ as directed .ROUTE .STK-MED ONE Stop: 03/23/17 22:21 Last Admin: 03/23/17 23:51 Dose: Not Given Lactated Ringer's (Ringers, Lactated) 1,000 mls @ 200 mls/hr IV ASDIRECTED [facility] Last Admin: 03/24/17 06:49 Dose: 200 mls/hr Dextrose/Water (Dextrose 5% In Water) 1,000 mls @ 125 mls/hr IV ASDIRECTED [facility] Last Admin: 03/25/17 15:16 Dose: 125 mls/hr Ceftriaxone Sodium 1 gm/ (Dextrose/Water) 100 mls @ 200 mls/hr IV Q24H [facility] Stop: 03/27/17 13:00 Last Admin: 03/27/17 11:24 Dose: 200 mls/hr Sodium Chloride (Sodium Chloride 0.45%) 1,000 mls @ 999 mls/hr IV ASDIRECTED [facility] Last Admin: 03/26/17 00:11 Dose: 999 mls/hr Sodium Chloride (Sodium Chloride 0.45%) 1,000 mls @ 125 mls/hr IV ASDIRECTED [facility] Last Infusion: 03/26/17 17:36 Dose: Infused Potassium Chloride/Dextrose/Sod Cl (D5 1/2 Ns W/ 20 Meq/L Kcl) 1,000 mls @ 125 mls/hr IV ASDIRECTED [facility] Last Admin: 03/27/17 21:29 Dose: 125 mls/hr Potassium Chloride (Klor-Con M20) 60 meq PO ONETIME ONE Stop: 03/25/17 23:49 Last Admin: 03/26/17 00:23 Dose: 60 meq Potassium Chloride (Klor-Con M20) 40 meq PO Q4H [facility] Stop: 03/26/17 13:01 Last Admin: 03/26/17 13:13 Dose: 40 meq - Exam General: Reports: Alert, Cooperative, No Acute Distress HEENT: Reports: Pupils Equal, Pupils Reactive, Mucous Membr. Moist/[place] Neck: Reports: Supple, Trachea Midline, No JVD, No Thyromegaly Lungs: Reports: Normal Respiratory Effort, Decreased Breath Sounds Cardiovascular: Reports: Regular Rate, Regular Rhythm GI/Abdominal Exam: Normal Bowel Sounds, Soft, Non-Tender, No Organomegaly, No Distention, No Abnormal Bruit (Female) Exam: Deferred Rectal (Female) Exam: Deferred Back Exam: Reports: Normal Inspection, Decreased Range of Motion Extremities: Normal Inspection, Normal Range of Motion, Non-Tender, No Pedal Edema, Normal Capillary Refill, Arm Pain Skin: Reports: Warm, Dry, Intact Neurological: Reports: No New Focal Deficit Psy/Mental Status: Reports: Alert, Normal Affect, Normal Mood *Q Meaningful Use (DIS) - VTE *Q VTE Criteria *Q: - Stroke *Q Stroke Criteria *Q: - AMI *Q AMI Criteria *Q:
== END 2017-03-28 11:26 | DRG 690 ==
LOC: JD.ED 19:44 → SUPCPDRO 19:44 → JD.MS 23:37 → UNDOADMIN 23:39
PROVIDERS: ADMIT Internal Medicine Cardiovascular Disease; ATTEND Internal Medicine Cardiovascular Disease
DX: N30.00 Acute cystitis without hematuria (principal); E87.0 Hyperosmolality and hypernatremia; F02.81 Dementia in other diseases classified elsewhere, unspecified severity, with behavioral disturbance; F03.90 Unspecified dementia, unspecified severity, without behavioral disturbance, psychotic disturbance, mood disturbance, and anxiety; G30.9 Alzheimer's disease, unspecified; I10 Essential (primary) hypertension; Z79.82 Long term (current) use of aspirin; G20 Parkinson's disease; D69.6 Thrombocytopenia, unspecified; E87.6 Hypokalemia; R00.0 Tachycardia, unspecified; I25.10 Atherosclerotic heart disease of native coronary artery without angina pectoris; Z88.8 Allergy status to other drugs, medicaments and biological substances; Z79.899 Other long term (current) drug therapy
CPT/HCPCS: 36415; 70450; 71045; 80053; 80164; 81001; 83605; 83735; 84484; 85025; 86140; 87040 ×2; 87086; 87088; 87186; 87804 ×2; 87899; 93005; 96361; 96365; 99285; J0696 ×2; J7030 ×2; J7040; J7050; J7060; P9612; 80048; 82962; 86738; 87486; 87581; 87633; 87641; 87798; 93010; 97161-GP; 99231; 99232; 99239; A9270-GY; J1650; J3480; J3490; J7120